=== PATIENT | female | born 1955 | race Caucasian/White ===

== ENCOUNTER 2016-09-06 15:06 | Inpatient (IN) | payer MEDICAID ==
[~2016-09-06] VITALS: Ht 119.4 cm; Wt 52.2 kg
[2016-09-06 15:06] VITALS: BP 106/45; PULSE 70; RESP 16; TEMP 98.8; O2SAT 99
[2016-09-06 15:51] LABS: BASOPHILS # (AUTO) 0.1 K/uL (0.0-0.2); BASOPHILS % (AUTO) 0.4 % (0.0-2.0); EOSINOPHILS # (AUTO) 0.5 K/uL (0.0-0.4); HEMATOCRIT 28.9 % (36-48); HEMOGLOBIN 9.6 g/dL (12.0-16.0); LYMPHOCYTES # (AUTO) 1.8 K/uL (1.0-5.5); LYMPHOCYTES % (AUTO) 11.8 % (20.5-51.5); MEAN CORPUSCULAR HEMOGLOBIN 27 pg (27-31); MEAN CORPUSCULAR HGB CONC 33 % (32-36); MEAN CORPUSCULAR VOLUME 80 fL (79.0-98.0); MONOCYTES # (AUTO) 0.6 K/uL (0.0-1.0); MONOCYTES % (AUTO) 4.2 % (1.7-9.3); NEUTROPHILS # (AUTO) 12.3 K/uL (1.8-7.7); NEUTROPHILS % (AUTO) 80.6 % (40.0-70.0); PLATELET COUNT (AUTO) 252 K/uL (130-430); RED CELL DISTRIBUTION WIDTH 15.1 % (9.0-15.0); WHITE BLOOD COUNT (AUTO) 15.3 K/uL (4.8-10.8)
[2016-09-06] MEDS ORDERED: ASA81 GT (16:08)
[2016-09-06] MEDS ORDERED: DOCU-144 GT (16:08)
[2016-09-06] MEDS ORDERED: METO-442 GT (16:08)
[2016-09-06] MEDS ORDERED: NOR10 GT (16:08)
[2016-09-06] MEDS ORDERED: INSU100V9 SUBCUT (16:08)
[2016-09-06] MEDS ORDERED: SIMV20TA2 GT (16:08)
[2016-09-06] MEDS ORDERED: SSREG SUBCUT (16:08)
[2016-09-06] MEDS ORDERED: HYDR-1189 GT (16:08)
[2016-09-06] MEDS ORDERED: GLIP-195 GT (16:08)
[2016-09-06] MEDS ORDERED: FER300L GT (16:08)
[2016-09-06] MEDS ORDERED: LACTIN GT (16:08)
[2016-09-06] MEDS ORDERED: CAT.1 GT (16:08)
[2016-09-06] MEDS ORDERED: MULT GT (16:08)
[2016-09-06] MEDS ORDERED: ASCO500T20 GT (16:08)
[2016-09-06 16:10] LABS: INR 0.9 (0.8-1.2); PROTHROMBIN TIME 9.9 SECS (9.5-12.5)
[2016-09-06 16:32] LABS: CALCIUM 9.2 mg/dL (8.4-11.0); CREATININE 1.67 mg/dL (0.55-1.30); POTASSIUM 3.7 mmol/L (3.5-5.1)
[2016-09-06 16:44] LABS: ALBUMIN 2.7 g/dL (3.4-4.8); TOTAL BILIRUBIN 0.3 mg/dL (0.0-1.0); TOTAL PROTEIN, SERUM 8.6 g/dL (6.4-8.3)
[2016-09-06] MEDS ORDERED: NACL 0.9% 1,000 ML IV ONE (17:37)
[2016-09-06] MEDS ORDERED: INSULIN REGULAR, HUMAN 100 UNITS/ML, 10 ML VIAL (novoLIN R) SUBCUT PRN (18:15)
[2016-09-06] MEDS ORDERED: MORPHINE 2 MG/ML INJ. SYRINGE IVP PRN (19:00)
[2016-09-06] MEDS ORDERED: MAGNESIUM SULFATE 50 ML IV PRN (19:00)
[2016-09-06] MEDS ORDERED: POTASSIUM CHLORIDE 10 MEQ TAB.PRT.SR PO PRN (19:00)
[2016-09-06] MEDS ORDERED: DOCUSATE SODIUM 100 MG CAPSULE PO PRN (19:00)
[2016-09-06] MEDS ORDERED: ZOLPIDEM TARTRATE 5 MG TABLET PO PRN (19:00)
[2016-09-06] MEDS ORDERED: LORazepam 2 MG/ML VIAL IVP PRN (19:00)
[2016-09-06] MEDS ORDERED: DEXTROSE 50% JECT 50 ML DISP.SYRIN IVP PRN (19:00)
[2016-09-06] MEDS ORDERED: ZOLPIDEM TARTRATE 5 MG TABLET GT PRN (19:51)
[2016-09-06 20:00] VITALS: BP 146/62; PULSE 75; RESP 18; TEMP 97.7; O2SAT 96
[2016-09-06] MEDS ORDERED: ACETAMINOPHEN 650 MG/20.3 ML UDC PO PRN (20:00)
[2016-09-06] MEDS: SIMVASTATIN 20 MG TABLET GT SCH (21:36)
[2016-09-06] MEDS: FERROUS SULFATE 300 MG/5 ML UDC GT SCH (21:36)
[2016-09-06] MEDS: METOPROLOL TARTRATE 50 MG TABLET GT SCH (21:37)
[2016-09-06] MEDS: NACL 0.9% 1,000 ML IV SCH (21:37)
[2016-09-06] MEDS: HEPARIN SODIUM,PORCINE 5000 UNITS/ML VIAL SUBCUT SCH (21:40)
[2016-09-06 23:11] LABS: BILIRUBIN,URINE NEGATIVE (NEGATIVE); BLOOD, URINE 2+ (NEGATIVE); CLARITY/URINE SL HAZY (CLEAR); COLOR,URINE YELLOW (YELLOW); GLUCOSE,URINE NEGATIVE (NEGATIVE); KETONES,URINE NEGATIVE (NEGATIVE); LEUKOCYTE ESTERASE ,URINE 1+ (NEGATIVE); NITRITE, URINE NEGATIVE (NEGATIVE); PH,URINE 8.5 (5.0-8.0); PROTEIN URINE 2+ (NEGATIVE); UROBILINOGEN,URINE 0.2 (0.2-1.0)
[2016-09-06 23:24] LABS: BACTERIA,URINE FEW /HPF (None Seen); RBC,URINE 20-50 /HPF (0-3)
[2016-09-06 23:25] LABS: MUCUS,URINE None Seen /LPF (None Seen)
[2016-09-07 00:30] VITALS: BP 138/68; PULSE 61; RESP 17; TEMP 97.9; O2SAT 97
[2016-09-07 04:43] VITALS: BP 143/66; PULSE 67; RESP 18; TEMP 98.6; O2SAT 98
[2016-09-07] MEDS: ONDANSETRON HCL 4 MG/2 ML VIAL IVP PRN ×2 (05:13→21:51)
[2016-09-07] MEDS: INSULIN ASPART 100 UNITS/ML, 10 ML VIAL (NovoLOG) SUBCUT PRN ×4 (05:49→21:57)
[2016-09-07 06:39] LABS: BASOPHILS # (AUTO) 0.1 K/uL (0.0-0.2); BASOPHILS % (AUTO) 0.4 % (0.0-2.0); EOSINOPHILS # (AUTO) 0.4 K/uL (0.0-0.4); EOSINOPHILS % (AUTO) 3.3 % (0.0-4.0); HEMATOCRIT 25.8 % (36-48); HEMOGLOBIN 8.6 g/dL (12.0-16.0); LYMPHOCYTES # (AUTO) 1.4 K/uL (1.0-5.5); LYMPHOCYTES % (AUTO) 10.4 % (20.5-51.5); MEAN CORPUSCULAR HEMOGLOBIN 27 pg (27-31); MEAN CORPUSCULAR HGB CONC 33 % (32-36); MEAN CORPUSCULAR VOLUME 81 fL (79.0-98.0); MONOCYTES # (AUTO) 0.5 K/uL (0.0-1.0); MONOCYTES % (AUTO) 3.9 % (1.7-9.3); NEUTROPHILS # (AUTO) 11.2 K/uL (1.8-7.7); PLATELET COUNT (AUTO) 247 K/uL (130-430); RED BLOOD CELL COUNT(AUTO) 3.19 MIL/uL (4.2-6.2); RED CELL DISTRIBUTION WIDTH 15.2 % (9.0-15.0); WHITE BLOOD COUNT (AUTO) 13.6 K/uL (4.8-10.8)
[2016-09-07 07:01] LABS: CALCIUM 8.6 mg/dL (8.4-11.0); CREATININE 1.48 mg/dL (0.55-1.30); POTASSIUM 3.6 mmol/L (3.5-5.1)
[2016-09-07] MEDS: NACL 0.9% 1,000 ML IV SCH ×2 (08:15→17:36)
[2016-09-07 08:59] VITALS: BP 138/52; PULSE 71; RESP 19; TEMP 98.9; O2SAT 92
[2016-09-07] MEDS: cloNIDine HCL 0.1 MG TABLET GT SCH (09:00)
[2016-09-07] MEDS: FERROUS SULFATE 300 MG/5 ML UDC GT SCH ×2 (09:58→21:54)
[2016-09-07] MEDS: amLODIPine BESYLATE 10 MG TABLET GT SCH (09:59)
[2016-09-07] MEDS: ASPIRIN 81 MG TAB.CHEW GT SCH (09:59)
[2016-09-07] MEDS: METOPROLOL TARTRATE 50 MG TABLET GT SCH ×2 (09:59→21:00)
[2016-09-07] MEDS: HEPARIN SODIUM,PORCINE 5000 UNITS/ML VIAL SUBCUT SCH ×2 (10:00→21:55)
[2016-09-07 12:00] VITALS: BP 113/47; PULSE 62; RESP 18; TEMP 99.6; O2SAT 92
[2016-09-07 16:00] VITALS: BP 135/63; PULSE 55; RESP 18; TEMP 99.8; O2SAT 95
[2016-09-07 19:40] VITALS: BP 112/51; PULSE 83; RESP 18; TEMP 98; O2SAT 96
[2016-09-07] MEDS: SIMVASTATIN 20 MG TABLET GT SCH (21:54)
[2016-09-07] MEDS ORDERED: METOCLOPRAMIDE HCL 10 MG/2 ML VIAL IVP ONE (23:15)
[2016-09-07] MEDS ORDERED: D5NS 500 ML IV ONE (23:15)
[2016-09-07] MEDS ORDERED: D5NS 1,000 ML IV SCH (23:15)
[2016-09-08] VITALS (8 sets, daily range): BP systolic 106–130; BP diastolic 50–64; PULSE 73–83; RESP 16–20; TEMP 97.9–99.9; O2SAT 94–98; Ht 119.4 cm; Wt 52.2 kg
[2016-09-08 06:22] LABS: BASOPHILS # (AUTO) 0.1 K/uL (0.0-0.2); BASOPHILS % (AUTO) 0.3 % (0.0-2.0); EOSINOPHILS # (AUTO) 0.1 K/uL (0.0-0.4); EOSINOPHILS % (AUTO) 0.7 % (0.0-4.0); HEMATOCRIT 28.7 % (36-48); HEMOGLOBIN 9.2 g/dL (12.0-16.0); LYMPHOCYTES # (AUTO) 1.7 K/uL (1.0-5.5); MEAN CORPUSCULAR HEMOGLOBIN 26 pg (27-31); MEAN CORPUSCULAR HGB CONC 32 % (32-36); MEAN CORPUSCULAR VOLUME 82 fL (79.0-98.0); MONOCYTES # (AUTO) 0.6 K/uL (0.0-1.0); MONOCYTES % (AUTO) 2.8 % (1.7-9.3); NEUTROPHILS # (AUTO) 18.3 K/uL (1.8-7.7); NEUTROPHILS % (AUTO) 88.2 % (40.0-70.0); PLATELET COUNT (AUTO) 247 K/uL (130-430); RED BLOOD CELL COUNT(AUTO) 3.49 MIL/uL (4.2-6.2); RED CELL DISTRIBUTION WIDTH 15.4 % (9.0-15.0); WHITE BLOOD COUNT (AUTO) 20.8 K/uL (4.8-10.8)
[2016-09-08] MEDS: INSULIN ASPART 100 UNITS/ML, 10 ML VIAL (NovoLOG) SUBCUT PRN ×4 (06:34→22:30)
[2016-09-08] MEDS: METOCLOPRAMIDE HCL 10 MG/2 ML VIAL IVP SCH ×3 (06:42→22:10)
[2016-09-08 06:55] LABS: CALCIUM 8.4 mg/dL (8.4-11.0); CREATININE 1.72 mg/dL (0.55-1.30); POTASSIUM 3.9 mmol/L (3.5-5.1)
[2016-09-08] MEDS ORDERED: D5W 1,000 ML IV SCH (07:49)
[2016-09-08] MEDS ORDERED: cefTRIAXone 1 GM IVPB PREMIX 50 ML IV SCH (09:00)
[2016-09-08] MEDS: amLODIPine BESYLATE 10 MG TABLET GT SCH (10:03)
[2016-09-08] MEDS: ASPIRIN 81 MG TAB.CHEW GT SCH (10:03)
[2016-09-08] MEDS: FERROUS SULFATE 300 MG/5 ML UDC GT SCH ×2 (10:03→22:06)
[2016-09-08] MEDS: METOPROLOL TARTRATE 50 MG TABLET GT SCH ×2 (10:04→21:00)
[2016-09-08] MEDS: cloNIDine HCL 0.1 MG TABLET GT SCH (10:04)
[2016-09-08] MEDS: HEPARIN SODIUM,PORCINE 5000 UNITS/ML VIAL SUBCUT SCH ×2 (10:06→22:09)
[2016-09-08] MEDS: ACETAMINOPHEN 650 MG/20.3 ML UDC GT PRN ×2 (11:47→18:15)
[2016-09-08] MEDS: VANCOMYCIN HCL 500 MG in NS 100 ML IV SCH (11:48)
[2016-09-08] MEDS ORDERED: BALSAM PERU/CASTOR OIL 60 GM OINT...G. TP ONE (20:15)
[2016-09-08] MEDS: SIMVASTATIN 20 MG TABLET GT SCH (22:07)
[2016-09-09 00:15] VITALS: BP 127/62; PULSE 67; RESP 17; TEMP 98.7; O2SAT 98
[2016-09-09 04:16] VITALS: BP 128/60; PULSE 70; RESP 16; TEMP 99; O2SAT 100
[2016-09-09] MEDS: METOCLOPRAMIDE HCL 10 MG/2 ML VIAL IVP SCH ×3 (06:04→22:56)
[2016-09-09] MEDS: INSULIN ASPART 100 UNITS/ML, 10 ML VIAL (NovoLOG) SUBCUT PRN ×5 (06:06→22:49)
[2016-09-09 07:10] LABS: BASOPHILS # (AUTO) 0.1 K/uL (0.0-0.2); BASOPHILS % (AUTO) 0.4 % (0.0-2.0); EOSINOPHILS # (AUTO) 0.1 K/uL (0.0-0.4); EOSINOPHILS % (AUTO) 0.4 % (0.0-4.0); HEMATOCRIT 28.2 % (36-48); HEMOGLOBIN 9.1 g/dL (12.0-16.0); LYMPHOCYTES # (AUTO) 1.6 K/uL (1.0-5.5); LYMPHOCYTES % (AUTO) 9.2 % (20.5-51.5); MEAN CORPUSCULAR HEMOGLOBIN 27 pg (27-31); MEAN CORPUSCULAR HGB CONC 32 % (32-36); MEAN CORPUSCULAR VOLUME 84 fL (79.0-98.0); MONOCYTES # (AUTO) 0.7 K/uL (0.0-1.0); MONOCYTES % (AUTO) 4.2 % (1.7-9.3); NEUTROPHILS # (AUTO) 14.9 K/uL (1.8-7.7); PLATELET COUNT (AUTO) 231 K/uL (130-430); RED BLOOD CELL COUNT(AUTO) 3.36 MIL/uL (4.2-6.2); RED CELL DISTRIBUTION WIDTH 15.6 % (9.0-15.0); WHITE BLOOD COUNT (AUTO) 17.4 K/uL (4.8-10.8)
[2016-09-09 07:18] LABS: CALCIUM 8.3 mg/dL (8.4-11.0); CREATININE 1.86 mg/dL (0.55-1.30); PHOSPHORUS 2.1 mg/dL (2.7-4.5); POTASSIUM 4.1 mmol/L (3.5-5.1); TOTAL BILIRUBIN 0.2 mg/dL (0.0-1.0); TOTAL PROTEIN, SERUM 7.5 g/dL (6.4-8.3)
[2016-09-09] MEDS ORDERED: NA PHOS 15 MM in NS 250 ML IV ONE (08:00)
[2016-09-09] MEDS: BALSAM PERU/CASTOR OIL 60 GM OINT...G. TP SCH (09:00)
[2016-09-09] MEDS ORDERED: LEVOFLOXACIN 250 MG/D5W 50 ML IV SCH (09:00)
[2016-09-09] MEDS: ASPIRIN 81 MG TAB.CHEW GT SCH (09:09)
[2016-09-09] MEDS: FERROUS SULFATE 300 MG/5 ML UDC GT SCH ×2 (09:09→22:52)
[2016-09-09] MEDS: cloNIDine HCL 0.1 MG TABLET GT SCH (09:11)
[2016-09-09] MEDS: amLODIPine BESYLATE 10 MG TABLET GT SCH (09:13)
[2016-09-09] MEDS: METOPROLOL TARTRATE 50 MG TABLET GT SCH ×2 (09:13→22:55)
[2016-09-09] MEDS: HEPARIN SODIUM,PORCINE 5000 UNITS/ML VIAL SUBCUT SCH ×2 (09:18→22:59)
[2016-09-09] MEDS: 0.45% NACL 1,000 ML IV SCH ×3 (09:21→23:21)
[2016-09-09] MEDS ORDERED: BISACODYL 10 MG/SUPPOSITORY RC ONE (09:45)
[2016-09-09] MEDS ORDERED: POLYETHYLENE GLYCOL 3350, 17 GM/ POWD.PACK GT ONE (10:00)
[2016-09-09] MEDS: VANCOMYCIN HCL 500 MG in NS 100 ML IV SCH (11:47)
[2016-09-09 11:51] LABS: NEUTROPHILS % (AUTO) 85.8 % (40.0-70.0)
[2016-09-09] MEDS ORDERED: LACTOBACILLUS RHAMNOSUS GG 1 CAP CAPSULE PO ONE (12:15)
[2016-09-09 12:42] VITALS: BP 98/60; PULSE 73; RESP 18; TEMP 99.8; O2SAT 98
[2016-09-09] MEDS: PIPERACILLIN/TAZO 3.375/DEX-IS 50 ML IV SCH ×3 (13:38→23:21)
[2016-09-09] MEDS: ACETAMINOPHEN 650 MG/20.3 ML UDC GT PRN ×2 (13:39→23:22)
[2016-09-09 18:09] VITALS: BP 95/45; PULSE 69; RESP 18; TEMP 100; O2SAT 93
[2016-09-09] MEDS: LACTOBACILLUS RHAMNOSUS GG 1 CAP CAPSULE PO SCH (22:52)
[2016-09-09] MEDS: SIMVASTATIN 20 MG TABLET GT SCH (22:53)
[2016-09-10 01:14] VITALS: BP 109/57; PULSE 83; RESP 20; TEMP 100.2; O2SAT 91
[2016-09-10 04:08] VITALS: BP 119/82; PULSE 70; RESP 18; TEMP 100.4; TEMP 98.6; O2SAT 99
[2016-09-10] MEDS: PIPERACILLIN/TAZO 3.375/DEX-IS 50 ML IV SCH ×4 (05:56→23:37)
[2016-09-10] MEDS: ACETAMINOPHEN 650 MG/20.3 ML UDC GT PRN ×3 (05:57→20:29)
[2016-09-10] MEDS: METOCLOPRAMIDE HCL 10 MG/2 ML VIAL IVP SCH ×3 (05:57→23:37)
[2016-09-10] MEDS: INSULIN ASPART 100 UNITS/ML, 10 ML VIAL (NovoLOG) SUBCUT PRN ×4 (06:11→20:39)
[2016-09-10 06:47] LABS: HEMATOCRIT 27.9 % (36-48); HEMOGLOBIN 8.9 g/dL (12.0-16.0); MEAN CORPUSCULAR HEMOGLOBIN 27 pg (27-31); MEAN CORPUSCULAR HGB CONC 32 % (32-36); MEAN CORPUSCULAR VOLUME 83 fL (79.0-98.0); PLATELET COUNT (AUTO) 210 K/uL (130-430); RED BLOOD CELL COUNT(AUTO) 3.35 MIL/uL (4.2-6.2); RED CELL DISTRIBUTION WIDTH 16.1 % (9.0-15.0); WHITE BLOOD COUNT (AUTO) 21.1 K/uL (4.8-10.8)
[2016-09-10 07:16] LABS: ALBUMIN 1.7 g/dL (3.4-4.8); CALCIUM 7.8 mg/dL (8.4-11.0); CREATININE 1.99 mg/dL (0.55-1.30); POTASSIUM 3.7 mmol/L (3.5-5.1); TOTAL BILIRUBIN 0.2 mg/dL (0.0-1.0); TOTAL PROTEIN, SERUM 6.6 g/dL (6.4-8.3)
[2016-09-10 08:18] LABS: BAND % (MANUAL) 4 % (0-6); BASOPHILS % (MANUAL) 0 % (0-2); EOSINOPHILS % (MANUAL) 0 % (0-7); LYMPHOCYTES % (MANUAL) 11 % (20-46); MONOCYTES % (MANUAL) 3 % (0-11)
[2016-09-10] MEDS: FERROUS SULFATE 300 MG/5 ML UDC GT SCH ×2 (08:29→20:28)
[2016-09-10] MEDS: LACTOBACILLUS RHAMNOSUS GG 1 CAP CAPSULE PO SCH ×2 (08:29→20:29)
[2016-09-10] MEDS: ASPIRIN 81 MG TAB.CHEW GT SCH (08:30)
[2016-09-10] MEDS: POLYETHYLENE GLYCOL 3350, 17 GM/ POWD.PACK GT SCH (08:31)
[2016-09-10] MEDS: HEPARIN SODIUM,PORCINE 5000 UNITS/ML VIAL SUBCUT SCH ×2 (08:39→20:32)
[2016-09-10] MEDS: amLODIPine BESYLATE 10 MG TABLET GT SCH (09:00)
[2016-09-10] MEDS: cloNIDine HCL 0.1 MG TABLET GT SCH (09:00)
[2016-09-10] MEDS: METOPROLOL TARTRATE 50 MG TABLET GT SCH ×2 (09:00→20:29)
[2016-09-10] MEDS ORDERED: NA PHOS,M-B/NA PHOS,DI-BA 118 ML (FLEET ENEMA) RC ONE (10:00)
[2016-09-10 11:52] VITALS: BP 123/60; PULSE 74; RESP 18; TEMP 101.4; O2SAT 96
[2016-09-10] MEDS: VANCOMYCIN HCL 500 MG in NS 100 ML IV SCH (12:17)
[2016-09-10] MEDS: BALSAM PERU/CASTOR OIL 60 GM OINT...G. TP SCH (16:27)
[2016-09-10 16:38] VITALS: BP 124/55; PULSE 74; RESP 16; TEMP 100.3; O2SAT 94
[2016-09-10] MEDS ORDERED: *CUBICIN 6 MG/KG Q48H/PHARMACY XX PRN (18:15)
[2016-09-10 20:00] VITALS: BP 134/60; PULSE 76; RESP 19; TEMP 101.1; O2SAT 99
[2016-09-10] MEDS: DAPTOmycin 300 MG in NS 50 ML IV SCH (20:28)
[2016-09-10] MEDS: SIMVASTATIN 20 MG TABLET GT SCH (20:29)
[2016-09-11 01:28] VITALS: BP 118/53; PULSE 61; RESP 19; TEMP 100.1; O2SAT 99
[2016-09-11 04:02] VITALS: BP 125/55; PULSE 67; RESP 20; TEMP 100.8; O2SAT 96
[2016-09-11] MEDS: ACETAMINOPHEN 650 MG/20.3 ML UDC GT PRN ×3 (04:10→17:31)
[2016-09-11] MEDS: PIPERACILLIN/TAZO 3.375/DEX-IS 50 ML IV SCH ×4 (06:15→23:22)
[2016-09-11] MEDS: METOCLOPRAMIDE HCL 10 MG/2 ML VIAL IVP SCH ×3 (06:16→21:59)
[2016-09-11] MEDS: INSULIN ASPART 100 UNITS/ML, 10 ML VIAL (NovoLOG) SUBCUT PRN ×4 (06:55→22:07)
[2016-09-11 07:14] LABS: BASOPHILS # (AUTO) 0.2 K/uL (0.0-0.2); BASOPHILS % (AUTO) 0.8 % (0.0-2.0); EOSINOPHILS # (AUTO) 0.1 K/uL (0.0-0.4); EOSINOPHILS % (AUTO) 0.6 % (0.0-4.0); HEMATOCRIT 24.4 % (36-48); HEMOGLOBIN 7.8 g/dL (12.0-16.0); LYMPHOCYTES # (AUTO) 1.7 K/uL (1.0-5.5); LYMPHOCYTES % (AUTO) 8.7 % (20.5-51.5); MEAN CORPUSCULAR HEMOGLOBIN 26 pg (27-31); MEAN CORPUSCULAR HGB CONC 32 % (32-36); MEAN CORPUSCULAR VOLUME 83 fL (79.0-98.0); MONOCYTES # (AUTO) 0.7 K/uL (0.0-1.0); MONOCYTES % (AUTO) 3.6 % (1.7-9.3); NEUTROPHILS # (AUTO) 17.2 K/uL (1.8-7.7); PLATELET COUNT (AUTO) 190 K/uL (130-430); RED BLOOD CELL COUNT(AUTO) 2.94 MIL/uL (4.2-6.2); RED CELL DISTRIBUTION WIDTH 15.6 % (9.0-15.0); WHITE BLOOD COUNT (AUTO) 19.9 K/uL (4.8-10.8)
[2016-09-11 07:37] LABS: CALCIUM 7.6 mg/dL (8.4-11.0); CREATININE 1.8 mg/dL (0.55-1.30); POTASSIUM 3.2 mmol/L (3.5-5.1)
[2016-09-11 07:38] LABS: PHOSPHORUS 3.5 mg/dL (2.7-4.5)
[2016-09-11 08:00] VITALS: BP 130/75; PULSE 76; RESP 18; TEMP 100; O2SAT 94
[2016-09-11 08:20] LABS: NEUTROPHILS % (AUTO) 86.3 % (40.0-70.0)
[2016-09-11] MEDS ORDERED: POTASSIUM CHLORIDE 20 MEQ TAB.PRT.SR GT ONE (08:30)
[2016-09-11] MEDS ORDERED: POTASSIUM CHLORIDE 40 MEQ in NS 250 ML IV ONE (08:30)
[2016-09-11] MEDS: FERROUS SULFATE 300 MG/5 ML UDC GT SCH ×2 (11:17→21:58)
[2016-09-11] MEDS: ASPIRIN 81 MG TAB.CHEW GT SCH (11:19)
[2016-09-11] MEDS: POTASSIUM CHLORIDE 10 MEQ TAB.PRT.SR GT PRN (11:19)
[2016-09-11] MEDS: LACTOBACILLUS RHAMNOSUS GG 1 CAP CAPSULE PO SCH ×2 (11:19→21:58)
[2016-09-11] MEDS: amLODIPine BESYLATE 10 MG TABLET GT SCH (11:19)
[2016-09-11] MEDS: cloNIDine HCL 0.1 MG TABLET GT SCH (11:20)
[2016-09-11] MEDS: METOPROLOL TARTRATE 50 MG TABLET GT SCH ×2 (11:20→21:59)
[2016-09-11] MEDS: POLYETHYLENE GLYCOL 3350, 17 GM/ POWD.PACK GT SCH (11:21)
[2016-09-11] MEDS: BALSAM PERU/CASTOR OIL 60 GM OINT...G. TP SCH (11:22)
[2016-09-11] MEDS: HEPARIN SODIUM,PORCINE 5000 UNITS/ML VIAL SUBCUT SCH ×2 (11:25→22:00)
[2016-09-11 12:00] VITALS: BP 129/52; PULSE 76; RESP 21; TEMP 100.4; O2SAT 94
[2016-09-11] MEDS ORDERED: POTASSIUM CHLORIDE 10 MEQ TAB.PRT.SR GT ONE (15:00)
[2016-09-11 16:45] VITALS: BP 113/85; PULSE 70; RESP 16; TEMP 100.1; O2SAT 98
[2016-09-11] MEDS: 0.45% NACL 1,000 ML IV SCH (17:31)
[2016-09-11 19:30] VITALS: BP 126/62; PULSE 69; RESP 18; TEMP 99.6; O2SAT 98
[2016-09-11] MEDS: SIMVASTATIN 20 MG TABLET GT SCH (21:58)
[2016-09-12 00:19] VITALS: BP 122/58; PULSE 72; RESP 17; TEMP 99.8; O2SAT 96
[2016-09-12] MEDS: ACETAMINOPHEN 650 MG/20.3 ML UDC GT PRN ×3 (03:58→21:18)
[2016-09-12 04:38] VITALS: BP 124/64; PULSE 74; RESP 18; TEMP 100; O2SAT 98
[2016-09-12] MEDS: PIPERACILLIN/TAZO 3.375/DEX-IS 50 ML IV SCH ×4 (06:32→17:52)
[2016-09-12] MEDS: METOCLOPRAMIDE HCL 10 MG/2 ML VIAL IVP SCH ×2 (06:32→16:48)
[2016-09-12] MEDS: INSULIN ASPART 100 UNITS/ML, 10 ML VIAL (NovoLOG) SUBCUT PRN ×2 (06:40→12:28)
[2016-09-12 07:33] LABS: BASOPHILS % (AUTO) 0.2 % (0.0-2.0); EOSINOPHILS # (AUTO) 0.2 K/uL (0.0-0.4); EOSINOPHILS % (AUTO) 1.3 % (0.0-4.0); HEMATOCRIT 22.9 % (36-48); HEMOGLOBIN 7.4 g/dL (12.0-16.0); LYMPHOCYTES # (AUTO) 1.6 K/uL (1.0-5.5); LYMPHOCYTES % (AUTO) 10.3 % (20.5-51.5); MEAN CORPUSCULAR HEMOGLOBIN 27 pg (27-31); MEAN CORPUSCULAR HGB CONC 32 % (32-36); MEAN CORPUSCULAR VOLUME 82 fL (79.0-98.0); MONOCYTES # (AUTO) 0.5 K/uL (0.0-1.0); MONOCYTES % (AUTO) 3.4 % (1.7-9.3); NEUTROPHILS # (AUTO) 12.9 K/uL (1.8-7.7); NEUTROPHILS % (AUTO) 84.8 % (40.0-70.0); PLATELET COUNT (AUTO) 170 K/uL (130-430); RED BLOOD CELL COUNT(AUTO) 2.79 MIL/uL (4.2-6.2); RED CELL DISTRIBUTION WIDTH 15.6 % (9.0-15.0); WHITE BLOOD COUNT (AUTO) 15.2 K/uL (4.8-10.8)
[2016-09-12 07:45] LABS: CALCIUM 7.9 mg/dL (8.4-11.0); CREATININE 1.71 mg/dL (0.55-1.30); POTASSIUM 3.7 mmol/L (3.5-5.1)
[2016-09-12 08:00] VITALS: BP 114/57; PULSE 67; RESP 18; TEMP 98.7; O2SAT 98
[2016-09-12] MEDS: cloNIDine HCL 0.1 MG TABLET GT SCH (10:24)
[2016-09-12] MEDS: ASPIRIN 81 MG TAB.CHEW GT SCH (10:24)
[2016-09-12] MEDS: FERROUS SULFATE 300 MG/5 ML UDC GT SCH ×2 (10:24→21:18)
[2016-09-12] MEDS: amLODIPine BESYLATE 10 MG TABLET GT SCH (10:25)
[2016-09-12] MEDS: LACTOBACILLUS RHAMNOSUS GG 1 CAP CAPSULE PO SCH ×2 (10:25→21:18)
[2016-09-12] MEDS: HEPARIN SODIUM,PORCINE 5000 UNITS/ML VIAL SUBCUT SCH ×2 (10:26→21:18)
[2016-09-12] MEDS: BALSAM PERU/CASTOR OIL 60 GM OINT...G. TP SCH (10:27)
[2016-09-12] MEDS: POLYETHYLENE GLYCOL 3350, 17 GM/ POWD.PACK GT SCH (10:32)
[2016-09-12] MEDS: METOPROLOL TARTRATE 50 MG TABLET GT SCH ×2 (10:33→21:20)
[2016-09-12 12:36] VITALS: BP 120/57; PULSE 68; RESP 16; TEMP 99.6; O2SAT 98
[2016-09-12 16:23] VITALS: BP 102/46; PULSE 59; RESP 18; TEMP 98; O2SAT 98
[2016-09-12] MEDS: 0.45% NACL 1,000 ML IV SCH (16:48)
[2016-09-12 19:35] VITALS: BP 100/48; PULSE 62; RESP 18; TEMP 99.7; O2SAT 100
[2016-09-12] MEDS: SIMVASTATIN 20 MG TABLET GT SCH (21:18)
[2016-09-13] VITALS (10 sets, daily range): BP systolic 101–132; BP diastolic 42–76; PULSE 56–65; RESP 16–21; TEMP 96.6–99.5; O2SAT 93–100
[2016-09-13] MEDS: PIPERACILLIN/TAZO 3.375/DEX-IS 50 ML IV SCH ×5 (00:57→22:57)
[2016-09-13] MEDS: METOCLOPRAMIDE HCL 10 MG/2 ML VIAL IVP SCH ×4 (00:58→22:57)
[2016-09-13] MEDS: DAPTOmycin 300 MG in NS 50 ML IV SCH (00:58)
[2016-09-13 07:22] LABS: BASOPHILS % (AUTO) 0.2 % (0.0-2.0); EOSINOPHILS # (AUTO) 0.4 K/uL (0.0-0.4); EOSINOPHILS % (AUTO) 2.1 % (0.0-4.0); HEMATOCRIT 26.7 % (36-48); HEMOGLOBIN 8.8 g/dL (12.0-16.0); LYMPHOCYTES # (AUTO) 1.6 K/uL (1.0-5.5); LYMPHOCYTES % (AUTO) 9.5 % (20.5-51.5); MEAN CORPUSCULAR HEMOGLOBIN 28 pg (27-31); MEAN CORPUSCULAR HGB CONC 33 % (32-36); MEAN CORPUSCULAR VOLUME 84 fL (79.0-98.0); MONOCYTES # (AUTO) 0.6 K/uL (0.0-1.0); MONOCYTES % (AUTO) 3.7 % (1.7-9.3); NEUTROPHILS # (AUTO) 14.1 K/uL (1.8-7.7); NEUTROPHILS % (AUTO) 84.5 % (40.0-70.0); RED BLOOD CELL COUNT(AUTO) 3.19 MIL/uL (4.2-6.2); RED CELL DISTRIBUTION WIDTH 15.3 % (9.0-15.0); WHITE BLOOD COUNT (AUTO) 16.7 K/uL (4.8-10.8)
[2016-09-13 07:45] LABS: CALCIUM 8.2 mg/dL (8.4-11.0); CREATININE 1.51 mg/dL (0.55-1.30); POTASSIUM 3.3 mmol/L (3.5-5.1)
[2016-09-13 08:47] LABS: PLATELET COUNT (AUTO) 177 K/uL (130-430)
[2016-09-13] MEDS: amLODIPine BESYLATE 10 MG TABLET GT SCH (10:57)
[2016-09-13] MEDS: cloNIDine HCL 0.1 MG TABLET GT SCH (10:57)
[2016-09-13] MEDS: LACTOBACILLUS RHAMNOSUS GG 1 CAP CAPSULE PO SCH ×2 (10:57→21:36)
[2016-09-13] MEDS: FERROUS SULFATE 300 MG/5 ML UDC GT SCH ×2 (10:58→21:37)
[2016-09-13] MEDS: ASPIRIN 81 MG TAB.CHEW GT SCH (10:58)
[2016-09-13] MEDS: METOPROLOL TARTRATE 50 MG TABLET GT SCH ×2 (10:58→21:37)
[2016-09-13] MEDS: POLYETHYLENE GLYCOL 3350, 17 GM/ POWD.PACK GT SCH (10:58)
[2016-09-13] MEDS: HEPARIN SODIUM,PORCINE 5000 UNITS/ML VIAL SUBCUT SCH ×2 (11:00→21:38)
[2016-09-13] MEDS: 0.45% NACL 1,000 ML IV SCH (11:02)
[2016-09-13] MEDS: BALSAM PERU/CASTOR OIL 60 GM OINT...G. TP SCH (11:04)
[2016-09-13] MEDS ORDERED: D5W 500 ML IV ONE (11:30)
[2016-09-13] MEDS ORDERED: MIDAZOLAM HCL 5 MG/5 ML VIAL ONE (14:00)
[2016-09-13] MEDS ORDERED: NS IRRIG SOLN 1000 ML IR ONE (14:00)
[2016-09-13] MEDS ORDERED: LR 1,000 ML IV.SOLN IV ONE (14:00)
[2016-09-13] MEDS: EPOETIN ALFA 4,000 UNITS/ML VIAL SUBCUT SCH (17:34)
[2016-09-13] MEDS ORDERED: ONDANSETRON HCL 4 MG/2 ML VIAL IVP PRN (19:45)
[2016-09-13] MEDS ORDERED: LR 1,000 ML IV SCH (19:45)
[2016-09-13] MEDS ORDERED: MEPERIDINE HCL/PF 50 MG/ML AMP IVP PRN ×2 (19:45)
[2016-09-13] MEDS: SIMVASTATIN 20 MG TABLET GT SCH (21:36)
[2016-09-13] MEDS: POTASSIUM CHLORIDE 10 MEQ TAB.PRT.SR GT PRN (21:40)
[2016-09-14 01:12] VITALS: BP 105/56; PULSE 52; RESP 18; TEMP 97.6; O2SAT 100
[2016-09-14 04:07] VITALS: BP 107/55; PULSE 56; RESP 19; TEMP 97.6; O2SAT 100
[2016-09-14] MEDS: PIPERACILLIN/TAZO 3.375/DEX-IS 50 ML IV SCH ×2 (05:16→12:02)
[2016-09-14] MEDS: METOCLOPRAMIDE HCL 10 MG/2 ML VIAL IVP SCH ×3 (05:16→21:25)
[2016-09-14] MEDS: INSULIN ASPART 100 UNITS/ML, 10 ML VIAL (NovoLOG) SUBCUT PRN ×4 (06:02→21:28)
[2016-09-14 06:30] LABS: CALCIUM 7.8 mg/dL (8.4-11.0); CREATININE 1.31 mg/dL (0.55-1.30); POTASSIUM 3.2 mmol/L (3.5-5.1)
[2016-09-14 06:35] LABS: BASOPHILS # (AUTO) 0.1 K/uL (0.0-0.2); BASOPHILS % (AUTO) 0.4 % (0.0-2.0); EOSINOPHILS # (AUTO) 0.5 K/uL (0.0-0.4); EOSINOPHILS % (AUTO) 3.4 % (0.0-4.0); HEMOGLOBIN 8.6 g/dL (12.0-16.0); LYMPHOCYTES # (AUTO) 1.5 K/uL (1.0-5.5); LYMPHOCYTES % (AUTO) 10.6 % (20.5-51.5); MEAN CORPUSCULAR HEMOGLOBIN 27 pg (27-31); MEAN CORPUSCULAR HGB CONC 32 % (32-36); MEAN CORPUSCULAR VOLUME 85 fL (79.0-98.0); MONOCYTES # (AUTO) 0.4 K/uL (0.0-1.0); MONOCYTES % (AUTO) 2.8 % (1.7-9.3); NEUTROPHILS # (AUTO) 11.2 K/uL (1.8-7.7); NEUTROPHILS % (AUTO) 82.8 % (40.0-70.0); PLATELET COUNT (AUTO) 168 K/uL (130-430); RED BLOOD CELL COUNT(AUTO) 3.18 MIL/uL (4.2-6.2); RED CELL DISTRIBUTION WIDTH 15.8 % (9.0-15.0); WHITE BLOOD COUNT (AUTO) 13.7 K/uL (4.8-10.8)
[2016-09-14 08:08] VITALS: BP 135/67; PULSE 64; RESP 18; TEMP 97.4; O2SAT 99
[2016-09-14] MEDS: POLYETHYLENE GLYCOL 3350, 17 GM/ POWD.PACK GT SCH (10:01)
[2016-09-14] MEDS: FERROUS SULFATE 300 MG/5 ML UDC GT SCH ×2 (10:02→21:24)
[2016-09-14] MEDS: METOPROLOL TARTRATE 50 MG TABLET GT SCH ×2 (10:02→21:25)
[2016-09-14] MEDS: LACTOBACILLUS RHAMNOSUS GG 1 CAP CAPSULE PO SCH (10:03)
[2016-09-14] MEDS: ASPIRIN 81 MG TAB.CHEW GT SCH (10:03)
[2016-09-14] MEDS: cloNIDine HCL 0.1 MG TABLET GT SCH (10:03)
[2016-09-14] MEDS: amLODIPine BESYLATE 10 MG TABLET GT SCH (10:03)
[2016-09-14] MEDS: BALSAM PERU/CASTOR OIL 60 GM OINT...G. TP SCH (10:13)
[2016-09-14 12:04] VITALS: BP 130/58; PULSE 62; RESP 17; TEMP 97.5; O2SAT 99
[2016-09-14] MEDS: POTASSIUM CHLORIDE 10 MEQ TAB.PRT.SR GT PRN (12:10)
[2016-09-14] MEDS: VANCOMYCIN HCL 750 MG in NS 250 ML IV SCH (14:51)
[2016-09-14 16:06] VITALS: BP 124/50; PULSE 52; RESP 18; TEMP 96.9; O2SAT 93
[2016-09-14] MEDS ORDERED: metroNIDAZOLE 500 MG TABLET PO ONE (17:30)
[2016-09-14] MEDS ORDERED: DIATR MEGLU/DIATRIZ SOD 30 ML SOLUTION PO ONE (17:31)
[2016-09-14] MEDS ORDERED: D5W 100 ML IV ONE (18:30)
[2016-09-14 19:30] VITALS: BP 173/58; PULSE 57; RESP 18; TEMP 99.1; O2SAT 98
[2016-09-14] MEDS: metroNIDAZOLE 500 MG TABLET GT SCH (21:24)
[2016-09-14] MEDS: SIMVASTATIN 20 MG TABLET GT SCH (21:25)
[2016-09-14] MEDS: metroNIDAZOLE 500 MG TABLET PO SCH (21:29)
[2016-09-15 00:23] VITALS: BP 127/51; PULSE 56; RESP 20; TEMP 99; O2SAT 95
[2016-09-15 04:14] VITALS: BP 130/58; PULSE 60; RESP 18; TEMP 98.6; O2SAT 97
[2016-09-15] MEDS: metroNIDAZOLE 500 MG TABLET PO SCH ×3 (06:00→22:00)
[2016-09-15] MEDS: metroNIDAZOLE 500 MG TABLET GT SCH ×3 (06:56→22:05)
[2016-09-15] MEDS: METOCLOPRAMIDE HCL 10 MG/2 ML VIAL IVP SCH ×3 (06:57→22:05)
[2016-09-15] MEDS: INSULIN ASPART 100 UNITS/ML, 10 ML VIAL (NovoLOG) SUBCUT PRN ×4 (07:16→22:18)
[2016-09-15 08:00] LABS: BASOPHILS # (AUTO) 0.1 K/uL (0.0-0.2); BASOPHILS % (AUTO) 0.5 % (0.0-2.0); EOSINOPHILS # (AUTO) 0.4 K/uL (0.0-0.4); EOSINOPHILS % (AUTO) 3.6 % (0.0-4.0); HEMATOCRIT 28.5 % (36-48); HEMOGLOBIN 9.2 g/dL (12.0-16.0); LYMPHOCYTES # (AUTO) 1.3 K/uL (1.0-5.5); LYMPHOCYTES % (AUTO) 11.2 % (20.5-51.5); MEAN CORPUSCULAR HEMOGLOBIN 27 pg (27-31); MEAN CORPUSCULAR HGB CONC 32 % (32-36); MEAN CORPUSCULAR VOLUME 84 fL (79.0-98.0); MONOCYTES # (AUTO) 0.5 K/uL (0.0-1.0); NEUTROPHILS # (AUTO) 9.3 K/uL (1.8-7.7); NEUTROPHILS % (AUTO) 80.7 % (40.0-70.0); PLATELET COUNT (AUTO) 183 K/uL (130-430); RED BLOOD CELL COUNT(AUTO) 3.39 MIL/uL (4.2-6.2); RED CELL DISTRIBUTION WIDTH 15.9 % (9.0-15.0); WHITE BLOOD COUNT (AUTO) 11.6 K/uL (4.8-10.8)
[2016-09-15 08:05] LABS: CALCIUM 7.8 mg/dL (8.4-11.0); CREATININE 1.02 mg/dL (0.55-1.30); POTASSIUM 3.3 mmol/L (3.5-5.1)
[2016-09-15 08:46] VITALS: BP 128/57; PULSE 54; RESP 18; TEMP 97.6; O2SAT 98
[2016-09-15] MEDS: amLODIPine BESYLATE 10 MG TABLET GT SCH (09:00)
[2016-09-15] MEDS: FERROUS SULFATE 300 MG/5 ML UDC GT SCH ×2 (09:00→22:05)
[2016-09-15] MEDS: cloNIDine HCL 0.1 MG TABLET GT SCH (09:00)
[2016-09-15] MEDS: METOPROLOL TARTRATE 50 MG TABLET GT SCH ×2 (09:00→22:07)
[2016-09-15] MEDS: POLYETHYLENE GLYCOL 3350, 17 GM/ POWD.PACK GT SCH (09:00)
[2016-09-15] MEDS: ASPIRIN 81 MG TAB.CHEW GT SCH (09:00)
[2016-09-15 12:32] VITALS: BP 147/56; PULSE 58; RESP 16; TEMP 97.3; O2SAT 96
[2016-09-15] MEDS: VANCOMYCIN HCL 750 MG in NS 250 ML IV SCH (13:38)
[2016-09-15] MEDS: BALSAM PERU/CASTOR OIL 60 GM OINT...G. TP SCH (13:41)
[2016-09-15 15:27] VITALS: BP 139/63; PULSE 57; RESP 16; TEMP 97.9; O2SAT 96
[2016-09-15] MEDS: EPOETIN ALFA 4,000 UNITS/ML VIAL SUBCUT SCH (17:39)
[2016-09-15] MEDS: POTASSIUM CHLORIDE 10 MEQ TAB.PRT.SR GT PRN (19:26)
[2016-09-15] MEDS: SIMVASTATIN 20 MG TABLET GT SCH (22:07)
[2016-09-15 22:35] VITALS: BP 123/56; PULSE 55; RESP 18; TEMP 98.4
[2016-09-16 00:45] VITALS: BP 142/65; PULSE 55; RESP 17; TEMP 98.4; O2SAT 98
== END 2016-09-16 00:45 | DRG 720 ==
LOC: SED 15:06 → SMU 18:06 → STU 09-11 01:01 → SMU 09-13 23:11
PROVIDERS: ADMIT General Practice; ATTEND General Practice
PROC: 30233N1 Transfusion of Nonautologous Red Blood Cells into Peripheral Vein, Percutaneous Approach (ICD-10-PCS; principal; 2016-09-12)
PROC: 0JB70ZZ Excision of Back Subcutaneous Tissue and Fascia, Open Approach (ICD-10-PCS; 2016-09-13)
DX: A41.9 Sepsis, unspecified organism (principal); N17.0 Acute kidney failure with tubular necrosis; G93.41 Metabolic encephalopathy; E87.0 Hyperosmolality and hypernatremia; L89.154 Pressure ulcer of sacral region, stage 4; A04.7 Enterocolitis due to Clostridium difficile; E87.2 Acidosis; J18.9 Pneumonia, unspecified organism; E11.22 Type 2 diabetes mellitus with diabetic chronic kidney disease; E11.69 Type 2 diabetes mellitus with other specified complication; L08.9 Local infection of the skin and subcutaneous tissue, unspecified; E44.0 Moderate protein-calorie malnutrition; E11.65 Type 2 diabetes mellitus with hyperglycemia; D63.8 Anemia in other chronic diseases classified elsewhere; E86.1 Hypovolemia; E66.9 Obesity, unspecified; E78.5 Hyperlipidemia, unspecified; I12.9 Hypertensive chronic kidney disease with stage 1 through stage 4 chronic kidney disease, or unspecified chronic kidney disease; N18.9 Chronic kidney disease, unspecified; K30 Functional dyspepsia; N39.0 Urinary tract infection, site not specified; R09.02 Hypoxemia; I69.351 Hemiplegia and hemiparesis following cerebral infarction affecting right dominant side; Z89.511 Acquired absence of right leg below knee; Z89.512 Acquired absence of left leg below knee; Z89.612 Acquired absence of left leg above knee; Z93.1 Gastrostomy status; Z68.36 Body mass index [BMI] 36.0-36.9, adult
CPT/HCPCS: 36415; 71010; 74000-TC; 80048; 80053; 81000-TC; 82272; 82962; 83605; 83690-TC; 83735-TC; 84100-TC; 84484; 85007; 85025; 85027; 85610-TC; 85730-TC; 86886; 86900; 86901; 86920; 87040-TC; 87070-TC; 87075-TC; 87081; 87086; 87186-TC; 87230-TC; 88304; 93005; 96360; 99285; J0696; J0878; J0885; J1644; J1815; J1956; J2250; J2405; J2543; J2765; J3370; J3480; J7030; J7042; J7050; J7060; J7120; P9021; Q9964

== ENCOUNTER 2016-10-09 11:14 | Inpatient (IN) | payer MEDICAID ==
[~2016-10-09] VITALS: Ht 167.6 cm; Wt 49.4 kg
[2016-10-09 11:14] VITALS: BP 124/56; PULSE 82; RESP 13; TEMP 97; O2SAT 96
[~2016-10-09 11:14] MED LIST: ASA81 GT; ASCO500T20 GT; CAT.1 GT; DOCU-144 GT; FER300L GT; GLIP-195 GT; HYDR-1189 GT; INSU100V9 SUBCUT; LACTIN GT; METO-442 GT; MULT GT; NOR10 GT; SIMV20TA2 GT; SSREG SUBCUT
[2016-10-09] MEDS ORDERED: POTA20TA83 GT (11:31)
[2016-10-09] MEDS ORDERED: ACET325T53 GT (11:31)
[2016-10-09] MEDS ORDERED: OMEP20CA10 GT (11:31)
[2016-10-09] MEDS ORDERED: ZIN220 GT (11:31)
[2016-10-09] MEDS ORDERED: ONDA4TAB5 PO (11:31)
[2016-10-09] MEDS ORDERED: INSU100I20 SQ (11:31)
[2016-10-09] MEDS ORDERED: ONDANSETRON HCL 4 MG/2 ML VIAL IVP ONE (12:00)
[2016-10-09] MEDS ORDERED: NACL 0.9% 1,000 ML IV ONE (12:00)
[2016-10-09 12:31] LABS: BILIRUBIN,URINE NEGATIVE (NEGATIVE); BLOOD, URINE 2+ (NEGATIVE); CLARITY/URINE CLEAR (CLEAR); COLOR,URINE YELLOW (YELLOW); GLUCOSE,URINE 3+ (NEGATIVE); KETONES,URINE NEGATIVE (NEGATIVE); LEUKOCYTE ESTERASE ,URINE TRACE (NEGATIVE); NITRITE, URINE NEGATIVE (NEGATIVE); PROTEIN URINE 2+ (NEGATIVE); UROBILINOGEN,URINE 0.2 (0.2-1.0)
[2016-10-09 12:47] LABS: BACTERIA,URINE FEW /HPF (None Seen); MUCUS,URINE None Seen /LPF (None Seen)
[2016-10-09 12:54] LABS: HEMATOCRIT 35.3 % (36-48); HEMOGLOBIN 11.4 g/dL (12.0-16.0); MEAN CORPUSCULAR HEMOGLOBIN 27 pg (27-31); MEAN CORPUSCULAR HGB CONC 32 % (32-36); MEAN CORPUSCULAR VOLUME 84 fL (79.0-98.0); PLATELET COUNT (AUTO) 459 K/uL (130-430); RED BLOOD CELL COUNT(AUTO) 4.19 MIL/uL (4.2-6.2); RED CELL DISTRIBUTION WIDTH 17.4 % (9.0-15.0); WHITE BLOOD COUNT (AUTO) 22.4 K/uL (4.8-10.8)
[2016-10-09 13:02] LABS: TOTAL BILIRUBIN 0.2 mg/dL (0.0-1.0); TOTAL PROTEIN, SERUM 8.6 g/dL (6.4-8.3)
[2016-10-09 13:04] LABS: INR 0.9 (0.8-1.2); PROTHROMBIN TIME 9.7 SECS (9.5-12.5)
[2016-10-09 13:15] LABS: CALCIUM 9.4 mg/dL (8.4-11.0); POTASSIUM 4.2 mmol/L (3.5-5.1)
[2016-10-09 13:17] LABS: ALBUMIN 2.9 g/dL (3.4-4.8)
[2016-10-09 13:18] LABS: BAND % (MANUAL) 2 % (0-6); BASOPHILS % (MANUAL) 0 % (0-2); EOSINOPHILS % (MANUAL) 0 % (0-7); LYMPHOCYTES % (MANUAL) 8 % (20-46); MONOCYTES % (MANUAL) 4 % (0-11)
[2016-10-09 13:20] LABS: CREATININE 1.4 mg/dL (0.55-1.30)
[2016-10-09] MEDS ORDERED: PIPERACILLIN/TAZOBACTAM 2.25 GM in NS 50 ML IV ONE (13:45)
[2016-10-09] MEDS ORDERED: PIPERACILLIN/TAZOBACTAM 2.25 GM VIAL IV ONE (13:52)
[2016-10-09 14:40] VITALS: BP 123/57; PULSE 79; RESP 18; TEMP 97.9; O2SAT 98
[2016-10-09] MEDS ORDERED: FLU VACC QS 2016-17(36MOS+)/PF 0.5 ML/SYR SYRINGE I.M. PRN (15:00)
[2016-10-09] MEDS ORDERED: DEXTROSE 50% JECT 50 ML DISP.SYRIN IVP PRN (15:15)
[2016-10-09] MEDS ORDERED: MORPHINE 2 MG/ML INJ. SYRINGE IVP PRN (15:15)
[2016-10-09] MEDS ORDERED: MAGNESIUM SULFATE 50 ML IV PRN (15:15)
[2016-10-09] MEDS ORDERED: LORazepam 2 MG/ML VIAL IVP PRN (15:15)
[2016-10-09] MEDS ORDERED: ONDANSETRON HCL 4 MG/2 ML VIAL IVP PRN (15:15)
[2016-10-09] MEDS ORDERED: POTASSIUM CHLORIDE 20 MEQ/PKT PACKET GT PRN (15:15)
[2016-10-09] MEDS ORDERED: ACETAMINOPHEN 650 MG/20.3 ML UDC GT PRN ×2 (15:15)
[2016-10-09] MEDS ORDERED: HYDROcodone/ACETAMIN 5-325 MG TAB (NORCO/ VICODIN) GT PRN (15:15)
[2016-10-09] MEDS ORDERED: DOCUSATE SODIUM 100 MG/10 ML UDC PO PRN (16:00)
[2016-10-09] MEDS ORDERED: DOCUSATE SODIUM 100 MG/10 ML UDC GT PRN (16:00)
[2016-10-09] MEDS ORDERED: LEVOFLOXACIN 500 MG/D5W 100 ML IV ONE (16:00)
[2016-10-09 16:33] VITALS: BP 125/72; PULSE 70; RESP 17; TEMP 98; O2SAT 94
[2016-10-09] MEDS: D5/0.45 NS 1,000 ML IV SCH (18:30)
[2016-10-09] MEDS: INSULIN ASPART 100 UNITS/ML, 10 ML VIAL (NovoLOG) SUBCUT PRN ×2 (18:50→21:15)
[2016-10-09 20:00] VITALS: BP 93/53; PULSE 84; RESP 18; TEMP 97.6; O2SAT 99
[2016-10-09] MEDS ORDERED: ZOLPIDEM TARTRATE 5 MG TABLET GT PRN (21:00)
[2016-10-09] MEDS: METOPROLOL TARTRATE 50 MG TABLET GT SCH (21:00)
[2016-10-09] MEDS: DOCUSATE SODIUM 100 MG/10 ML UDC GT SCH (21:11)
[2016-10-09] MEDS: SIMVASTATIN 20 MG TABLET GT SCH (21:12)
[2016-10-10 00:35] VITALS: BP 102/47; PULSE 81; RESP 17; TEMP 98.6; O2SAT 92
[2016-10-10 04:36] VITALS: BP 111/50; PULSE 76; RESP 18; TEMP 98.4; O2SAT 93
[2016-10-10] MEDS: INSULIN ASPART 100 UNITS/ML, 10 ML VIAL (NovoLOG) SUBCUT PRN ×2 (06:22→18:46)
[2016-10-10] MEDS: D5/0.45 NS 1,000 ML IV SCH ×2 (06:22→16:15)
[2016-10-10 07:32] LABS: BASOPHILS # (AUTO) 0.1 K/uL (0.0-0.2); BASOPHILS % (AUTO) 0.4 % (0.0-2.0); EOSINOPHILS # (AUTO) 0.2 K/uL (0.0-0.4); EOSINOPHILS % (AUTO) 1.4 % (0.0-4.0); HEMATOCRIT 28.6 % (36-48); HEMOGLOBIN 9.4 g/dL (12.0-16.0); LYMPHOCYTES # (AUTO) 1.8 K/uL (1.0-5.5); LYMPHOCYTES % (AUTO) 10.5 % (20.5-51.5); MEAN CORPUSCULAR HEMOGLOBIN 28 pg (27-31); MEAN CORPUSCULAR HGB CONC 33 % (32-36); MEAN CORPUSCULAR VOLUME 84 fL (79.0-98.0); MONOCYTES # (AUTO) 0.6 K/uL (0.0-1.0); MONOCYTES % (AUTO) 3.7 % (1.7-9.3); NEUTROPHILS # (AUTO) 14.1 K/uL (1.8-7.7); PLATELET COUNT (AUTO) 372 K/uL (130-430); RED CELL DISTRIBUTION WIDTH 17.7 % (9.0-15.0); WHITE BLOOD COUNT (AUTO) 16.8 K/uL (4.8-10.8)
[2016-10-10 07:44] LABS: CALCIUM 8.4 mg/dL (8.4-11.0); CREATININE 1.3 mg/dL (0.55-1.30); POTASSIUM 3.7 mmol/L (3.5-5.1)
[2016-10-10 08:00] VITALS: BP 120/60; PULSE 76; RESP 18; TEMP 98; O2SAT 98
[2016-10-10 08:14] LABS: INR 0.9 (0.8-1.2)
[2016-10-10] MEDS: ASCORBIC ACID 500 MG TABLET GT SCH (09:00)
[2016-10-10] MEDS: METOPROLOL TARTRATE 50 MG TABLET GT SCH ×2 (09:00→22:34)
[2016-10-10] MEDS: DOCUSATE SODIUM 100 MG/10 ML UDC GT SCH ×2 (09:00→22:33)
[2016-10-10] MEDS: amLODIPine BESYLATE 10 MG TABLET GT SCH (09:00)
[2016-10-10] MEDS: POTASSIUM CHLORIDE 20 MEQ/PKT PACKET GT SCH (09:00)
[2016-10-10 12:19] VITALS: BP 183/85; PULSE 99; RESP 17; TEMP 97.2; O2SAT 98
[2016-10-10] MEDS ORDERED: MEPERIDINE HCL/PF 50 MG/ML AMP ONE (15:03)
[2016-10-10] MEDS: MEPERIDINE HCL/PF 50 MG/ML AMP ONE ×2 (15:43→15:45)
[2016-10-10] MEDS: MIDAZOLAM HCL 5 MG/5 ML VIAL ONE ×2 (15:43→15:45)
[2016-10-10] MEDS: PANTOPRAZOLE SODIUM 40 MG/VIAL (PROTONIX) IVP SCH (18:40)
[2016-10-10 19:30] VITALS: BP 173/79; PULSE 84; RESP 20; TEMP 97.6; O2SAT 98
[2016-10-10 20:00] VITALS: BP 173/78; PULSE 84; RESP 20; TEMP 97.6; O2SAT 98
[2016-10-10] MEDS: SIMVASTATIN 20 MG TABLET GT SCH (22:33)
[2016-10-11] VITALS (7 sets, daily range): BP systolic 113–160; BP diastolic 62–95; PULSE 56–79; RESP 16–18; TEMP 96.3–98.7; O2SAT 95–99; Ht 167.6 cm; Wt 49.4 kg
[2016-10-11] MEDS: D5/0.45 NS 1,000 ML IV SCH (05:36)
[2016-10-11] MEDS: INSULIN ASPART 100 UNITS/ML, 10 ML VIAL (NovoLOG) SUBCUT PRN ×4 (06:20→21:14)
[2016-10-11 08:21] LABS: BASOPHILS # (AUTO) 0.1 K/uL (0.0-0.2); BASOPHILS % (AUTO) 0.5 % (0.0-2.0); EOSINOPHILS # (AUTO) 0.5 K/uL (0.0-0.4); EOSINOPHILS % (AUTO) 4.2 % (0.0-4.0); HEMATOCRIT 29.7 % (36-48); HEMOGLOBIN 9.7 g/dL (12.0-16.0); LYMPHOCYTES # (AUTO) 1.4 K/uL (1.0-5.5); LYMPHOCYTES % (AUTO) 11.7 % (20.5-51.5); MEAN CORPUSCULAR HEMOGLOBIN 27 pg (27-31); MEAN CORPUSCULAR HGB CONC 33 % (32-36); MEAN CORPUSCULAR VOLUME 84 fL (79.0-98.0); MONOCYTES # (AUTO) 0.5 K/uL (0.0-1.0); MONOCYTES % (AUTO) 3.8 % (1.7-9.3); NEUTROPHILS # (AUTO) 9.4 K/uL (1.8-7.7); NEUTROPHILS % (AUTO) 79.8 % (40.0-70.0); PLATELET COUNT (AUTO) 378 K/uL (130-430); RED BLOOD CELL COUNT(AUTO) 3.55 MIL/uL (4.2-6.2); RED CELL DISTRIBUTION WIDTH 17.2 % (9.0-15.0); WHITE BLOOD COUNT (AUTO) 11.9 K/uL (4.8-10.8)
[2016-10-11 08:29] LABS: CALCIUM 8.6 mg/dL (8.4-11.0); CREATININE 0.99 mg/dL (0.55-1.30); POTASSIUM 3.5 mmol/L (3.5-5.1)
[2016-10-11] MEDS ORDERED: METOCLOPRAMIDE HCL 10 MG/2 ML VIAL IVP ONE (09:30)
[2016-10-11] MEDS: DOCUSATE SODIUM 100 MG/10 ML UDC GT SCH ×2 (09:38→21:15)
[2016-10-11] MEDS: PANTOPRAZOLE SODIUM 40 MG/VIAL (PROTONIX) IVP SCH (09:38)
[2016-10-11] MEDS: POTASSIUM CHLORIDE 20 MEQ/PKT PACKET GT SCH (09:39)
[2016-10-11] MEDS: amLODIPine BESYLATE 10 MG TABLET GT SCH (09:39)
[2016-10-11] MEDS: ASCORBIC ACID 500 MG TABLET GT SCH (09:39)
[2016-10-11] MEDS: METOPROLOL TARTRATE 50 MG TABLET GT SCH ×2 (09:40→21:18)
[2016-10-11] MEDS: BALSAM PERU/CASTOR OIL 60 GM OINT...G. TP SCH (15:07)
[2016-10-11] MEDS: METOCLOPRAMIDE HCL 10 MG/2 ML VIAL IVP SCH ×2 (15:07→21:18)
[2016-10-11] MEDS ORDERED: LEVOFLOXACIN 250 MG/D5W 50 ML IV SCH (21:00)
[2016-10-11] MEDS: SIMVASTATIN 20 MG TABLET GT SCH (21:15)
[2016-10-12] VITALS (7 sets, daily range): BP systolic 95–179; BP diastolic 30–90; PULSE 69–84; RESP 16–18; TEMP 96–99; O2SAT 97–100
[2016-10-12] MEDS: METOCLOPRAMIDE HCL 10 MG/2 ML VIAL IVP SCH ×3 (05:43→23:55)
[2016-10-12] MEDS: D5/0.45 NS 1,000 ML IV SCH ×2 (05:43→05:45)
[2016-10-12] MEDS: INSULIN ASPART 100 UNITS/ML, 10 ML VIAL (NovoLOG) SUBCUT PRN ×4 (06:23→22:34)
[2016-10-12 07:52] LABS: BASOPHILS % (AUTO) 0.3 % (0.0-2.0); EOSINOPHILS # (AUTO) 0.3 K/uL (0.0-0.4); EOSINOPHILS % (AUTO) 2.4 % (0.0-4.0); HEMATOCRIT 28.5 % (36-48); HEMOGLOBIN 9.4 g/dL (12.0-16.0); LYMPHOCYTES % (AUTO) 8.4 % (20.5-51.5); MEAN CORPUSCULAR HEMOGLOBIN 28 pg (27-31); MEAN CORPUSCULAR HGB CONC 33 % (32-36); MEAN CORPUSCULAR VOLUME 84 fL (79.0-98.0); MONOCYTES # (AUTO) 0.5 K/uL (0.0-1.0); MONOCYTES % (AUTO) 4.1 % (1.7-9.3); NEUTROPHILS # (AUTO) 10.4 K/uL (1.8-7.7); NEUTROPHILS % (AUTO) 84.8 % (40.0-70.0); PLATELET COUNT (AUTO) 346 K/uL (130-430); RED CELL DISTRIBUTION WIDTH 17.1 % (9.0-15.0); WHITE BLOOD COUNT (AUTO) 12.2 K/uL (4.8-10.8)
[2016-10-12 08:15] LABS: CALCIUM 8.3 mg/dL (8.4-11.0); CREATININE 0.92 mg/dL (0.55-1.30)
[2016-10-12] MEDS: PANTOPRAZOLE SODIUM 40 MG/VIAL (PROTONIX) IVP SCH (09:26)
[2016-10-12] MEDS: DOCUSATE SODIUM 100 MG/10 ML UDC GT SCH ×2 (09:26→22:14)
[2016-10-12] MEDS: POTASSIUM CHLORIDE 20 MEQ/PKT PACKET GT SCH (09:26)
[2016-10-12] MEDS: METOPROLOL TARTRATE 50 MG TABLET GT SCH ×2 (09:27→22:19)
[2016-10-12] MEDS: amLODIPine BESYLATE 10 MG TABLET GT SCH (09:27)
[2016-10-12] MEDS: ASCORBIC ACID 500 MG TABLET GT SCH (09:27)
[2016-10-12] MEDS: BALSAM PERU/CASTOR OIL 60 GM OINT...G. TP SCH (12:15)
[2016-10-12] MEDS: AMIKACIN SULFATE 350 MG in D5W 100 ML IV SCH ×2 (12:51→23:55)
[2016-10-12] MEDS: SIMVASTATIN 20 MG TABLET GT SCH (22:05)
[2016-10-13] VITALS (7 sets, daily range): BP systolic 126–145; BP diastolic 54–79; PULSE 69–82; RESP 16–21; TEMP 97.6–98.2; O2SAT 96–98
[2016-10-13] MEDS: D5/0.45 NS 1,000 ML IV SCH ×2 (02:26→09:35)
[2016-10-13] MEDS: METOCLOPRAMIDE HCL 10 MG/2 ML VIAL IVP SCH ×2 (05:37→15:20)
[2016-10-13] MEDS: INSULIN ASPART 100 UNITS/ML, 10 ML VIAL (NovoLOG) SUBCUT PRN ×3 (06:10→17:42)
[2016-10-13 07:27] LABS: BASOPHILS % (AUTO) 0.4 % (0.0-2.0); EOSINOPHILS # (AUTO) 0.3 K/uL (0.0-0.4); EOSINOPHILS % (AUTO) 2.8 % (0.0-4.0); HEMATOCRIT 27.4 % (36-48); HEMOGLOBIN 9.1 g/dL (12.0-16.0); LYMPHOCYTES # (AUTO) 1.7 K/uL (1.0-5.5); LYMPHOCYTES % (AUTO) 15.4 % (20.5-51.5); MEAN CORPUSCULAR HEMOGLOBIN 28 pg (27-31); MEAN CORPUSCULAR HGB CONC 33 % (32-36); MEAN CORPUSCULAR VOLUME 85 fL (79.0-98.0); MONOCYTES # (AUTO) 0.6 K/uL (0.0-1.0); MONOCYTES % (AUTO) 5.3 % (1.7-9.3); NEUTROPHILS # (AUTO) 8.7 K/uL (1.8-7.7); NEUTROPHILS % (AUTO) 76.1 % (40.0-70.0); PLATELET COUNT (AUTO) 374 K/uL (130-430); RED BLOOD CELL COUNT(AUTO) 3.24 MIL/uL (4.2-6.2); RED CELL DISTRIBUTION WIDTH 17.3 % (9.0-15.0); WHITE BLOOD COUNT (AUTO) 11.3 K/uL (4.8-10.8)
[2016-10-13 08:16] LABS: CALCIUM 8.2 mg/dL (8.4-11.0); CREATININE 1.02 mg/dL (0.55-1.30); POTASSIUM 4.1 mmol/L (3.5-5.1)
[2016-10-13] MEDS: POTASSIUM CHLORIDE 20 MEQ/PKT PACKET GT SCH (09:18)
[2016-10-13] MEDS: PANTOPRAZOLE SODIUM 40 MG/VIAL (PROTONIX) IVP SCH (09:18)
[2016-10-13] MEDS: ASCORBIC ACID 500 MG TABLET GT SCH (09:20)
[2016-10-13] MEDS: amLODIPine BESYLATE 10 MG TABLET GT SCH (09:20)
[2016-10-13] MEDS: DOCUSATE SODIUM 100 MG/10 ML UDC GT SCH (09:21)
[2016-10-13] MEDS: BALSAM PERU/CASTOR OIL 60 GM OINT...G. TP SCH (09:22)
[2016-10-13] MEDS: METOPROLOL TARTRATE 50 MG TABLET GT SCH (09:34)
[2016-10-13] MEDS: AMIKACIN SULFATE 350 MG in D5W 100 ML IV SCH (12:26)
== END 2016-10-13 20:30 | DRG 241 ==
LOC: SED 11:14 → SMU 14:09
PROVIDERS: ADMIT General Practice; ATTEND General Practice
PROC: 0DB68ZX Excision of Stomach, Via Natural or Artificial Opening Endoscopic, Diagnostic (ICD-10-PCS; 2016-10-10)
PROC: CF141ZZ Planar Nuclear Medicine Imaging of Gallbladder using Technetium 99m (Tc-99m) (ICD-10-PCS; 2016-10-10)
PROC: 0DB58ZX Excision of Esophagus, Via Natural or Artificial Opening Endoscopic, Diagnostic (ICD-10-PCS; principal; 2016-10-10 13:00)
DX: K25.4 Chronic or unspecified gastric ulcer with hemorrhage (principal); N17.0 Acute kidney failure with tubular necrosis; E43 Unspecified severe protein-calorie malnutrition; K22.11 Ulcer of esophagus with bleeding; E11.21 Type 2 diabetes mellitus with diabetic nephropathy; L89.159 Pressure ulcer of sacral region, unspecified stage; K31.84 Gastroparesis; E11.43 Type 2 diabetes mellitus with diabetic autonomic (poly)neuropathy; K92.0 Hematemesis; E11.22 Type 2 diabetes mellitus with diabetic chronic kidney disease; N39.0 Urinary tract infection, site not specified; I12.9 Hypertensive chronic kidney disease with stage 1 through stage 4 chronic kidney disease, or unspecified chronic kidney disease; K44.9 Diaphragmatic hernia without obstruction or gangrene; R13.10 Dysphagia, unspecified; N18.9 Chronic kidney disease, unspecified; E11.65 Type 2 diabetes mellitus with hyperglycemia; Z16.24 Resistance to multiple antibiotics; B96.20 Unspecified Escherichia coli [E. coli] as the cause of diseases classified elsewhere; B96.1 Klebsiella pneumoniae [K. pneumoniae] as the cause of diseases classified elsewhere; Z79.82 Long term (current) use of aspirin; Z89.612 Acquired absence of left leg above knee; Z86.19 Personal history of other infectious and parasitic diseases; Z93.1 Gastrostomy status; Z89.511 Acquired absence of right leg below knee; Z79.899 Other long term (current) drug therapy; Z86.73 Personal history of transient ischemic attack (TIA), and cerebral infarction without residual deficits; Z68.1 Body mass index [BMI] 19.9 or less, adult
CPT/HCPCS: 36415; 43239; 71010; 78226; 80048; 80053; 81000-TC; 82962; 83605; 83690-TC; 83735-TC; 85007; 85025; 85027; 85610-TC; 85730-TC; 87040-TC; 87070-TC; 87081; 87086; 87186-TC; 88305; 88312; 88313; 92610-GN; 96374; 99285; A9537; C9113; J0278; J1815; J1956; J2175; J2250; J2405; J2543; J2765; J7030; J7060

== ENCOUNTER 2017-01-13 12:57 | Emergency (ER) | payer MEDICAID ==
[2016-10-11 14:24] VITALS: Ht 121.9 cm; Wt 62.6 kg
[~2017-01-13] VITALS: Ht 121.9 cm; Wt 62.6 kg
[~2017-01-13 12:57] MED LIST changes: +ACET325T53 GT; +INSU100I20 SQ; +OMEP20CA10 GT; +ONDA4TAB5 PO; +POTA20TA83 GT; +ZIN220 GT
[2017-01-13 13:00] VITALS: BP 137/57; PULSE 69; RESP 18; TEMP 98.4; O2SAT 97
--- NOTE | 2017-01-13 13:00 | NUR ---
Pt BIB BLS from [facility], placed to [facility]. Pt here for G-Tube replacement. Arrives with F/C in place to keep stoma patent.
--- NOTE | 2017-01-13 13:15 | NUR ---
Dr. Starkey at bedside to assess pt.
[2017-01-13] MEDS ORDERED: GASTROGRAFIN 120 ML ONE (13:20)
--- NOTE | 2017-01-13 13:20 | NUR ---
G-Tube placed per Dr. Starkey.
--- NOTE | 2017-01-13 13:25 | NUR ---
G-Tube placement confirmed per x-ray.
[2017-01-13 14:30] VITALS: BP 134/88; PULSE 79; RESP 18; TEMP 97.6; O2SAT 98
--- NOTE | 2017-01-13 14:30 | NUR ---
Patient given written and verbal discharge instructions and verbalizes understanding. ER MD discussed with patient the results and treatment provided. Patient in stable condition. ID arm band removed. Patient educated on pain management and to follow up with PMD. Pain Scale 0/10. Opportunity for questions provided and answered.
== END 2017-01-13 14:30 ==
LOC: SED 12:57
DX: Z43.1 Encounter for attention to gastrostomy (principal); E11.22 Type 2 diabetes mellitus with diabetic chronic kidney disease; I12.9 Hypertensive chronic kidney disease with stage 1 through stage 4 chronic kidney disease, or unspecified chronic kidney disease; N18.9 Chronic kidney disease, unspecified; Z86.73 Personal history of transient ischemic attack (TIA), and cerebral infarction without residual deficits
CPT/HCPCS: 43760; 74240; 99284; Q9963

== ENCOUNTER 2017-03-16 16:42 | Inpatient (IN) | payer MEDICAID ==
[~2017-03-16] VITALS: Ht 129.5 cm; Wt 64.0 kg
[2017-03-16 16:42] VITALS: BP_SYST 132
[2017-03-16] MEDS ORDERED: ESOM20TA GT (17:15)
[2017-03-16 19:33] LABS: CALCIUM 9.4 mg/dL (8.4-11.0); CREATININE 1.98 mg/dL (0.55-1.30); POTASSIUM 4.4 mmol/L (3.5-5.1)
[2017-03-16 19:36] LABS: BASOPHILS # (AUTO) 0.1 K/uL (0.0-0.2); BASOPHILS % (AUTO) 0.6 % (0.0-2.0); EOSINOPHILS # (AUTO) 0.2 K/uL (0.0-0.4); HEMATOCRIT 34.5 % (36-48); LYMPHOCYTES # (AUTO) 1.7 K/uL (1.0-5.5); LYMPHOCYTES % (AUTO) 10.9 % (20.5-51.5); MEAN CORPUSCULAR HEMOGLOBIN 26 pg (27-31); MEAN CORPUSCULAR HGB CONC 32 % (32-36); MEAN CORPUSCULAR VOLUME 82 fL (79.0-98.0); MONOCYTES # (AUTO) 0.5 K/uL (0.0-1.0); MONOCYTES % (AUTO) 2.9 % (1.7-9.3); NEUTROPHILS # (AUTO) 13.1 K/uL (1.8-7.7); NEUTROPHILS % (AUTO) 84.6 % (40.0-70.0); RED BLOOD CELL COUNT(AUTO) 4.19 MIL/uL (4.2-6.2); RED CELL DISTRIBUTION WIDTH 16.4 % (9.0-15.0); WHITE BLOOD COUNT (AUTO) 15.6 K/uL (4.8-10.8)
[2017-03-16 19:38] LABS: PLATELET COUNT (AUTO) 266 K/uL (130-430)
[2017-03-16 19:41] LABS: TOTAL BILIRUBIN 0.3 mg/dL (0.0-1.0); TOTAL PROTEIN, SERUM 8.7 g/dL (6.4-8.3)
[2017-03-16] MEDS ORDERED: NACL 0.9% 1,000 ML IV ONE (20:00)
[2017-03-16] MEDS ORDERED: cefTRIAXone 2 GM VIAL ONE (20:04)
[2017-03-16] MEDS ORDERED: ONDANSETRON HCL 4 MG/2 ML VIAL IVP PRN (20:15)
[2017-03-16] MEDS ORDERED: DOCUSATE SODIUM 100 MG CAPSULE PO PRN (20:15)
[2017-03-16] MEDS ORDERED: POTASSIUM CHLORIDE 10 MEQ TAB.PRT.SR PO PRN (20:15)
[2017-03-16] MEDS ORDERED: ZOLPIDEM TARTRATE 5 MG TABLET PO PRN (20:15)
[2017-03-16] MEDS ORDERED: MORPHINE 2 MG/ML INJ. SYRINGE IVP PRN (20:15)
[2017-03-16] MEDS ORDERED: ACETAMINOPHEN 325 MG TABLET PO PRN (20:15)
[2017-03-16] MEDS ORDERED: DEXTROSE 50% JECT 50 ML DISP.SYRIN IVP PRN (20:15)
[2017-03-16] MEDS ORDERED: MAGNESIUM SULFATE 50 ML IV PRN (20:15)
[2017-03-16] MEDS ORDERED: LORazepam 2 MG/ML VIAL IVP PRN (20:15)
[2017-03-16 20:40] VITALS: BP_SYST 128
[2017-03-16 21:12] VITALS: BP_SYST 151
[2017-03-16] MEDS: HEPARIN SODIUM,PORCINE 5000 UNITS/ML VIAL SUBCUT SCH (22:00)
[2017-03-16] MEDS: INSULIN ASPART 100 UNITS/ML, 10 ML VIAL (NovoLOG) SUBCUT PRN (22:02)
[2017-03-16] MEDS: D5NS 1,000 ML IV SCH (22:06)
[2017-03-17] VITALS (7 sets, daily range): BP systolic 124–164
[2017-03-17 04:02] LABS: BILIRUBIN,URINE NEGATIVE (NEGATIVE); BLOOD, URINE 1+ (NEGATIVE); CLARITY/URINE CLOUDY (CLEAR); COLOR,URINE YELLOW (YELLOW); GLUCOSE,URINE NEGATIVE (NEGATIVE); KETONES,URINE NEGATIVE (NEGATIVE); LEUKOCYTE ESTERASE ,URINE 1+ (NEGATIVE); NITRITE, URINE NEGATIVE (NEGATIVE); PH,URINE 8.5 (5.0-8.0); PROTEIN URINE 2+ (NEGATIVE); UROBILINOGEN,URINE 0.2 (0.2-1.0)
[2017-03-17 04:11] LABS: BACTERIA,URINE MANY /HPF (None Seen); RBC,URINE 0-3 /HPF (0-3); TRIPLE PHOSPHATE CRYSTAL,UR 50-70 /HPF (None Seen)
[2017-03-17 04:12] LABS: MUCUS,URINE None Seen /LPF (None Seen); URINE AMORPHOUS PHOSPHATES 3+ /HPF (None Seen)
[2017-03-17] MEDS: INSULIN ASPART 100 UNITS/ML, 10 ML VIAL (NovoLOG) SUBCUT PRN ×4 (06:01→22:12)
[2017-03-17 07:43] LABS: CALCIUM 8.7 mg/dL (8.4-11.0); CREATININE 1.78 mg/dL (0.55-1.30); POTASSIUM 3.9 mmol/L (3.5-5.1)
[2017-03-17 07:44] LABS: BASOPHILS # (AUTO) 0.1 K/uL (0.0-0.2); BASOPHILS % (AUTO) 0.5 % (0.0-2.0); EOSINOPHILS # (AUTO) 0.1 K/uL (0.0-0.4); HEMOGLOBIN 10.6 g/dL (12.0-16.0)
[2017-03-17 07:57] LABS: HEMATOCRIT 33.7 % (36-48); MEAN CORPUSCULAR HEMOGLOBIN 27 pg (27-31); MEAN CORPUSCULAR HGB CONC 32 % (32-36); MEAN CORPUSCULAR VOLUME 84 fL (79.0-98.0); PLATELET COUNT (AUTO) 232 K/uL (130-430); RED BLOOD CELL COUNT(AUTO) 4.02 MIL/uL (4.2-6.2); RED CELL DISTRIBUTION WIDTH 16.6 % (9.0-15.0); WHITE BLOOD COUNT (AUTO) 12.4 K/uL (4.8-10.8)
[2017-03-17 07:58] LABS: EOSINOPHILS % (AUTO) 1.1 % (0.0-4.0); LYMPHOCYTES # (AUTO) 1.5 K/uL (1.0-5.5); LYMPHOCYTES % (AUTO) 11.8 % (20.5-51.5); MONOCYTES # (AUTO) 0.6 K/uL (0.0-1.0); MONOCYTES % (AUTO) 4.9 % (1.7-9.3); NEUTROPHILS # (AUTO) 10.1 K/uL (1.8-7.7); NEUTROPHILS % (AUTO) 81.7 % (40.0-70.0)
[2017-03-17] MEDS ORDERED: DIATR MEGLU/DIATRIZ SOD 30 ML SOLUTION PO ONE (09:10)
[2017-03-17] MEDS: HEPARIN SODIUM,PORCINE 5000 UNITS/ML VIAL SUBCUT SCH ×2 (09:44→22:12)
[2017-03-17] MEDS ORDERED: GASTROGRAFIN 120 ML ONE (12:46)
[2017-03-17] MEDS: D5NS 1,000 ML IV SCH ×2 (15:37→17:25)
[2017-03-17] MEDS: cefTRIAXone 1 GM in D5W 50 ML IV SCH (22:07)
[2017-03-18 03:41] VITALS: BP_SYST 150
[2017-03-18] MEDS: D5NS 1,000 ML IV SCH (06:55)
[2017-03-18] MEDS: INSULIN ASPART 100 UNITS/ML, 10 ML VIAL (NovoLOG) SUBCUT PRN ×3 (06:59→17:56)
[2017-03-18 08:00] VITALS: BP_SYST 169
[2017-03-18 08:53] LABS: BASOPHILS # (AUTO) 0.1 K/uL (0.0-0.2); EOSINOPHILS # (AUTO) 0.1 K/uL (0.0-0.4); EOSINOPHILS % (AUTO) 1.9 % (0.0-4.0); HEMATOCRIT 31.3 % (36-48); HEMOGLOBIN 10.1 g/dL (12.0-16.0); LYMPHOCYTES # (AUTO) 0.8 K/uL (1.0-5.5); LYMPHOCYTES % (AUTO) 10.7 % (20.5-51.5); MEAN CORPUSCULAR HEMOGLOBIN 27 pg (27-31); MEAN CORPUSCULAR HGB CONC 32 % (32-36); MEAN CORPUSCULAR VOLUME 83 fL (79.0-98.0); MONOCYTES # (AUTO) 0.3 K/uL (0.0-1.0); MONOCYTES % (AUTO) 4.5 % (1.7-9.3); NEUTROPHILS # (AUTO) 6.4 K/uL (1.8-7.7); NEUTROPHILS % (AUTO) 81.9 % (40.0-70.0); PLATELET COUNT (AUTO) 210 K/uL (130-430); RED BLOOD CELL COUNT(AUTO) 3.77 MIL/uL (4.2-6.2); RED CELL DISTRIBUTION WIDTH 16.3 % (9.0-15.0); WHITE BLOOD COUNT (AUTO) 7.7 K/uL (4.8-10.8)
[2017-03-18 09:01] LABS: CALCIUM 8.7 mg/dL (8.4-11.0); CREATININE 1.51 mg/dL (0.55-1.30); POTASSIUM 4.2 mmol/L (3.5-5.1)
[2017-03-18] MEDS ORDERED: hydrALAZINE HCL 20 MG/ML VIAL IVP PRN (09:45)
[2017-03-18] MEDS: HEPARIN SODIUM,PORCINE 5000 UNITS/ML VIAL SUBCUT SCH (10:30)
[2017-03-18 11:29] VITALS: BP_SYST 133
[2017-03-18 15:35] VITALS: BP_SYST 148
[2017-03-18] MEDS: D5/0.45 NS 1,000 ML IV SCH (17:14)
[2017-03-18 21:46] LABS: CALCIUM 8.8 mg/dL (8.4-11.0); CREATININE 1.54 mg/dL (0.55-1.30); POTASSIUM 3.9 mmol/L (3.5-5.1)
[2017-03-18] MEDS: LACTULOSE 20 GM/30 ML UDC GT SCH (23:49)
[2017-03-18] MEDS: FERROUS SULFATE 300 MG/5 ML UDC GT SCH (23:49)
[2017-03-18] MEDS: cefTRIAXone 1 GM in D5W 50 ML IV SCH (23:49)
[2017-03-18] MEDS: SIMVASTATIN 20 MG TABLET GT SCH (23:50)
[2017-03-19] MEDS: HEPARIN SODIUM,PORCINE 5000 UNITS/ML VIAL SUBCUT SCH ×2 (00:02→10:08)
[2017-03-19 03:43] VITALS: BP_SYST 159
[2017-03-19] MEDS: D5/0.45 NS 1,000 ML IV SCH ×2 (03:52→21:16)
[2017-03-19] MEDS: INSULIN ASPART 100 UNITS/ML, 10 ML VIAL (NovoLOG) SUBCUT PRN ×3 (06:56→18:10)
[2017-03-19 07:46] LABS: BASOPHILS # (AUTO) 0.1 K/uL (0.0-0.2); BASOPHILS % (AUTO) 0.9 % (0.0-2.0); EOSINOPHILS # (AUTO) 0.1 K/uL (0.0-0.4); EOSINOPHILS % (AUTO) 1.6 % (0.0-4.0); HEMATOCRIT 34.6 % (36-48); HEMOGLOBIN 11.2 g/dL (12.0-16.0); LYMPHOCYTES # (AUTO) 1.2 K/uL (1.0-5.5); MEAN CORPUSCULAR HEMOGLOBIN 27 pg (27-31); MEAN CORPUSCULAR HGB CONC 32 % (32-36); MEAN CORPUSCULAR VOLUME 84 fL (79.0-98.0); MONOCYTES # (AUTO) 0.4 K/uL (0.0-1.0); MONOCYTES % (AUTO) 5.8 % (1.7-9.3); NEUTROPHILS # (AUTO) 5.5 K/uL (1.8-7.7); NEUTROPHILS % (AUTO) 74.7 % (40.0-70.0); PLATELET COUNT (AUTO) 236 K/uL (130-430); RED BLOOD CELL COUNT(AUTO) 4.14 MIL/uL (4.2-6.2); RED CELL DISTRIBUTION WIDTH 16.4 % (9.0-15.0); WHITE BLOOD COUNT (AUTO) 7.3 K/uL (4.8-10.8)
[2017-03-19 08:07] LABS: CALCIUM 9.1 mg/dL (8.4-11.0); CREATININE 1.55 mg/dL (0.55-1.30); POTASSIUM 4.1 mmol/L (3.5-5.1)
[2017-03-19] MEDS: ASCORBIC ACID 500 MG TABLET GT SCH (10:01)
[2017-03-19] MEDS: MULTIVITAMINS TAB 1 TABLET GT SCH (10:01)
[2017-03-19] MEDS: FERROUS SULFATE 300 MG/5 ML UDC GT SCH (10:02)
[2017-03-19] MEDS: amLODIPine BESYLATE 10 MG TABLET GT SCH (10:03)
[2017-03-19] MEDS: LACTULOSE 20 GM/30 ML UDC GT SCH ×2 (10:04→21:00)
[2017-03-19] MEDS: METOPROLOL TARTRATE 50 MG TABLET GT SCH ×2 (10:04)
[2017-03-19 11:36] VITALS: BP_SYST 122
[2017-03-19] MEDS: MEROPENEM 1 GM in NS 100 ML IV SCH (14:33)
[2017-03-19 15:41] VITALS: BP_SYST 127
[2017-03-19] MEDS ORDERED: BISACODYL 10 MG/SUPPOSITORY RC ONE (15:45)
[2017-03-19] MEDS ORDERED: MINERAL OIL 30 ML UDC GT ONE (15:45)
[2017-03-20] MEDS: FERROUS SULFATE 300 MG/5 ML UDC GT SCH ×3 (00:01→21:50)
[2017-03-20] MEDS: MEROPENEM 1 GM in NS 100 ML IV SCH ×4 (00:01→21:52)
[2017-03-20] MEDS: SIMVASTATIN 20 MG TABLET GT SCH ×2 (00:02→21:51)
[2017-03-20] MEDS: METOPROLOL TARTRATE 50 MG TABLET GT SCH ×3 (00:03→21:51)
[2017-03-20] MEDS: INSULIN ASPART 100 UNITS/ML, 10 ML VIAL (NovoLOG) SUBCUT PRN ×4 (00:07→21:54)
[2017-03-20] MEDS: HEPARIN SODIUM,PORCINE 5000 UNITS/ML VIAL SUBCUT SCH ×3 (00:07→21:55)
[2017-03-20 00:20] VITALS: BP_SYST 138
[2017-03-20 04:10] VITALS: BP_SYST 130
[2017-03-20 07:34] LABS: BASOPHILS # (AUTO) 0.1 K/uL (0.0-0.2); BASOPHILS % (AUTO) 0.9 % (0.0-2.0); EOSINOPHILS # (AUTO) 0.2 K/uL (0.0-0.4); EOSINOPHILS % (AUTO) 2.4 % (0.0-4.0); HEMATOCRIT 31.8 % (36-48); HEMOGLOBIN 10.3 g/dL (12.0-16.0); LYMPHOCYTES # (AUTO) 1.5 K/uL (1.0-5.5); LYMPHOCYTES % (AUTO) 14.6 % (20.5-51.5); MEAN CORPUSCULAR HEMOGLOBIN 27 pg (27-31); MEAN CORPUSCULAR HGB CONC 32 % (32-36); MEAN CORPUSCULAR VOLUME 84 fL (79.0-98.0); MONOCYTES # (AUTO) 0.5 K/uL (0.0-1.0); MONOCYTES % (AUTO) 4.6 % (1.7-9.3); NEUTROPHILS # (AUTO) 7.8 K/uL (1.8-7.7); NEUTROPHILS % (AUTO) 77.5 % (40.0-70.0); PLATELET COUNT (AUTO) 204 K/uL (130-430); RED BLOOD CELL COUNT(AUTO) 3.79 MIL/uL (4.2-6.2); RED CELL DISTRIBUTION WIDTH 16.1 % (9.0-15.0)
[2017-03-20 07:43] LABS: CALCIUM 8.8 mg/dL (8.4-11.0); CREATININE 1.67 mg/dL (0.55-1.30); PHOSPHORUS 3.6 mg/dL (2.7-4.5)
[2017-03-20 07:53] LABS: WHITE BLOOD COUNT (AUTO) 10.1 K/uL (4.8-10.8)
[2017-03-20] MEDS: POLYETHYLENE GLYCOL 3350, 17 GM/ POWD.PACK PO SCH (09:00)
[2017-03-20] MEDS: LACTULOSE 20 GM/30 ML UDC GT SCH ×2 (09:00→21:50)
[2017-03-20] MEDS: MULTIVITAMINS TAB 1 TABLET GT SCH (10:19)
[2017-03-20] MEDS: ASCORBIC ACID 500 MG TABLET GT SCH (10:20)
[2017-03-20] MEDS: amLODIPine BESYLATE 10 MG TABLET GT SCH (10:20)
[2017-03-20 12:37] VITALS: BP_SYST 107
[2017-03-20 16:20] VITALS: BP_SYST 121
[2017-03-20 20:00] VITALS: BP_SYST 122
[2017-03-21] VITALS: BP_SYST 132
[2017-03-21] MEDS: D5/0.45 NS 1,000 ML IV SCH (00:36)
[2017-03-21 04:37] VITALS: BP_SYST 131
[2017-03-21] MEDS: MEROPENEM 1 GM in NS 100 ML IV SCH ×2 (05:40→14:16)
[2017-03-21] MEDS: INSULIN ASPART 100 UNITS/ML, 10 ML VIAL (NovoLOG) SUBCUT PRN ×3 (06:04→19:37)
[2017-03-21 06:39] LABS: BASOPHILS # (AUTO) 0.1 K/uL (0.0-0.2); BASOPHILS % (AUTO) 0.5 % (0.0-2.0); EOSINOPHILS # (AUTO) 0.2 K/uL (0.0-0.4); EOSINOPHILS % (AUTO) 1.5 % (0.0-4.0); HEMOGLOBIN 9.8 g/dL (12.0-16.0); LYMPHOCYTES # (AUTO) 0.8 K/uL (1.0-5.5); MEAN CORPUSCULAR HEMOGLOBIN 26 pg (27-31); MEAN CORPUSCULAR HGB CONC 31 % (32-36); MEAN CORPUSCULAR VOLUME 84 fL (79.0-98.0); MONOCYTES # (AUTO) 0.4 K/uL (0.0-1.0); MONOCYTES % (AUTO) 3.8 % (1.7-9.3); NEUTROPHILS % (AUTO) 87.2 % (40.0-70.0); PLATELET COUNT (AUTO) 196 K/uL (130-430); RED BLOOD CELL COUNT(AUTO) 3.71 MIL/uL (4.2-6.2); RED CELL DISTRIBUTION WIDTH 16.6 % (9.0-15.0); WHITE BLOOD COUNT (AUTO) 11.5 K/uL (4.8-10.8)
[2017-03-21 06:44] LABS: CALCIUM 8.3 mg/dL (8.4-11.0); CREATININE 1.62 mg/dL (0.55-1.30); PHOSPHORUS 3.3 mg/dL (2.7-4.5); POTASSIUM 3.6 mmol/L (3.5-5.1)
[2017-03-21] MEDS: POLYETHYLENE GLYCOL 3350, 17 GM/ POWD.PACK PO SCH (09:00)
[2017-03-21] MEDS: FERROUS SULFATE 300 MG/5 ML UDC GT SCH (09:05)
[2017-03-21] MEDS: METOPROLOL TARTRATE 50 MG TABLET GT SCH (09:05)
[2017-03-21] MEDS: MULTIVITAMINS TAB 1 TABLET GT SCH (09:05)
[2017-03-21] MEDS: amLODIPine BESYLATE 10 MG TABLET GT SCH (09:06)
[2017-03-21] MEDS: ASCORBIC ACID 500 MG TABLET GT SCH (09:06)
[2017-03-21] MEDS: LACTULOSE 20 GM/30 ML UDC GT SCH (09:13)
[2017-03-21] MEDS: HEPARIN SODIUM,PORCINE 5000 UNITS/ML VIAL SUBCUT SCH (09:18)
[2017-03-21 11:26] VITALS: BP_SYST 134
[2017-03-21 15:33] VITALS: BP_SYST 94
[2017-03-21] MEDS ORDERED: MENTHOL/ZINC OXIDE 113 GM OINT. TP PRN (17:00)
[2017-03-21] MEDS ORDERED: MENTHOL/ZINC OXIDE 113 GM OINT. TP SCH (17:00)
[2017-03-21 17:16] VITALS: BP_SYST 101
== END 2017-03-21 20:08 | DRG 252 ==
LOC: SED 16:42 → SMU 19:18
PROVIDERS: ADMIT General Practice; ATTEND General Practice
PROC: 0D20XUZ Change Feeding Device in Upper Intestinal Tract, External Approach (ICD-10-PCS; principal; 2017-03-17)
DX: K94.23 Gastrostomy malfunction (principal); N17.0 Acute kidney failure with tubular necrosis; A41.9 Sepsis, unspecified organism; E43 Unspecified severe protein-calorie malnutrition; L89.159 Pressure ulcer of sacral region, unspecified stage; E87.0 Hyperosmolality and hypernatremia; E11.22 Type 2 diabetes mellitus with diabetic chronic kidney disease; N39.0 Urinary tract infection, site not specified; I12.9 Hypertensive chronic kidney disease with stage 1 through stage 4 chronic kidney disease, or unspecified chronic kidney disease; N18.9 Chronic kidney disease, unspecified; R13.10 Dysphagia, unspecified; E11.65 Type 2 diabetes mellitus with hyperglycemia; E78.00 Pure hypercholesterolemia, unspecified; K56.41 Fecal impaction; Z16.12 Extended spectrum beta lactamase (ESBL) resistance; Y83.3 Surgical operation with formation of external stoma as the cause of abnormal reaction of the patient, or of later complication, without mention of misadventure at the time of the procedure; M62.81 Muscle weakness (generalized); K80.20 Calculus of gallbladder without cholecystitis without obstruction; Z89.612 Acquired absence of left leg above knee; Z89.511 Acquired absence of right leg below knee; Z79.899 Other long term (current) drug therapy; Z86.73 Personal history of transient ischemic attack (TIA), and cerebral infarction without residual deficits; Z68.38 Body mass index [BMI] 38.0-38.9, adult; Z79.84 Long term (current) use of oral hypoglycemic drugs; Z93.1 Gastrostomy status
CPT/HCPCS: 36415; 71010; 74000-TC; 74240-TC; 80048; 80053; 81000-TC; 82962; 83605; 83735-TC; 84100-TC; 85025; 87040-TC; 87081; 87086; 87186-TC; 93005; 96365; 99285; A6209; J0360; J0696; J1644; J1815; J2185; J2405; J7030; J7042; J7060; Q9963; Q9964

== ENCOUNTER 2017-08-25 22:21 | Inpatient (IN) | payer MEDICAID ==
[~2017-08-25] VITALS: Ht 129.5 cm; Wt 76.7 kg
[2017-08-25 22:21] VITALS: BP_SYST 101
[~2017-08-25 22:21] MED LIST changes: -ASA81 GT; -CAT.1 GT; +ESOM20TA GT; -GLIP-195 GT; -HYDR-1189 GT; -INSU100V9 SUBCUT; -LACTIN GT; -OMEP20CA10 GT; -ONDA4TAB5 PO
[2017-08-25] MEDS ORDERED: NS 500 ML IV SCH (22:49)
[2017-08-25 23:45] LABS: BASOPHILS % (AUTO) 0.1 % (0.0-2.0); EOSINOPHILS % (AUTO) 0.1 % (0.0-4.0); LYMPHOCYTES # (AUTO) 0.6 K/uL (1.0-5.5); LYMPHOCYTES % (AUTO) 4.1 % (20.5-51.5); MEAN CORPUSCULAR HEMOGLOBIN 26 pg (27-31); MEAN CORPUSCULAR HGB CONC 31 % (32-36); MEAN CORPUSCULAR VOLUME 84 fL (79.0-98.0); MONOCYTES # (AUTO) 0.2 K/uL (0.0-1.0); MONOCYTES % (AUTO) 1.4 % (1.7-9.3); NEUTROPHILS # (AUTO) 14.9 K/uL (1.8-7.7); NEUTROPHILS % (AUTO) 94.3 % (40.0-70.0); PLATELET COUNT (AUTO) 365 K/uL (130-430); RED BLOOD CELL COUNT(AUTO) 2.32 MIL/uL (4.2-6.2); RED CELL DISTRIBUTION WIDTH 16.5 % (9.0-15.0); WHITE BLOOD COUNT (AUTO) 15.7 K/uL (4.8-10.8)
[2017-08-26 00:03] LABS: HEMATOCRIT 19.5 % (36-48)
[2017-08-26 00:05] LABS: CALCIUM 8.1 mg/dL (8.4-11.0); CREATININE 5.11 mg/dL (0.55-1.30); POTASSIUM 4.4 mmol/L (3.5-5.1)
[2017-08-26 00:07] LABS: ALBUMIN 1.3 g/dL (3.4-4.8); TOTAL BILIRUBIN 0.3 mg/dL (0.0-1.0)
[2017-08-26 00:11] LABS: PROTHROMBIN TIME 9.8 SECS (9.5-12.5)
[2017-08-26] MEDS ORDERED: NACL 0.9% 1,000 ML IV ONE (00:45)
[2017-08-26] MEDS ORDERED: LEVOFLOXACIN 500 MG/D5W 100 ML IV ONE (02:30)
[2017-08-26 03:03] LABS: BILIRUBIN,URINE NEGATIVE (NEGATIVE); BLOOD, URINE 3+ (NEGATIVE); CLARITY/URINE CLEAR (CLEAR); COLOR,URINE YELLOW (YELLOW); GLUCOSE,URINE NEGATIVE (NEGATIVE); KETONES,URINE NEGATIVE (NEGATIVE); LEUKOCYTE ESTERASE ,URINE 2+ (NEGATIVE); NITRITE, URINE NEGATIVE (NEGATIVE); PROTEIN URINE 2+ (NEGATIVE); UROBILINOGEN,URINE 0.2 (0.2-1.0)
[2017-08-26 03:15] LABS: BACTERIA,URINE MODERATE /HPF (None Seen); RBC,URINE 20-50 /HPF (0-3)
[2017-08-26] MEDS ORDERED: NUT.250L18 GT (03:23)
[2017-08-26] MEDS ORDERED: VIT1TABL44 GT (03:23)
[2017-08-26] MEDS ORDERED: METO-290 GT (03:23)
[2017-08-26] MEDS ORDERED: ONDA4TAB5 GT (03:23)
[2017-08-26] MEDS ORDERED: LACTIN GT (03:23)
[2017-08-26] MEDS ORDERED: FAMO20TA8 GT (03:25)
[2017-08-26] MEDS ORDERED: FIBER GT SCH (04:15)
[2017-08-26] MEDS ORDERED: [UNRECOGNIZED DRUG - OTHER] GT SCH (04:15)
[2017-08-26] MEDS ORDERED: MUPIROCIN 2% TOPICAL OINTMENT 22 GM NS PRN (07:00)
[2017-08-26] MEDS ORDERED: DEXTROSE 50% JECT 50 ML DISP.SYRIN IVP PRN (07:00)
[2017-08-26] MEDS ORDERED: LORazepam 2 MG/ML VIAL IVP PRN (07:00)
[2017-08-26] MEDS ORDERED: ONDANSETRON HCL 4 MG/2 ML VIAL IVP PRN (07:00)
[2017-08-26] MEDS ORDERED: POTASSIUM CHLORIDE 20 MEQ TAB.PRT.SR PO PRN (07:00)
[2017-08-26] MEDS ORDERED: ACETAMINOPHEN 325 MG TABLET PO PRN (07:00)
[2017-08-26] MEDS ORDERED: DOCUSATE SODIUM 100 MG CAPSULE PO PRN (07:00)
[2017-08-26] MEDS ORDERED: ACETAMINOPHEN 325 MG TABLET GT PRN (07:00)
[2017-08-26] MEDS ORDERED: MORPHINE 2 MG/ML INJ. SYRINGE IVP PRN ×2 (07:00)
[2017-08-26] MEDS ORDERED: ZOLPIDEM TARTRATE 5 MG TABLET PO PRN (07:00)
[2017-08-26] MEDS ORDERED: MAGNESIUM SULFATE 50 ML IV PRN (07:00)
[2017-08-26 09:30] VITALS: BP_SYST 98
[2017-08-26 10:05] VITALS: BP_SYST 98
[2017-08-26 13:07] VITALS: BP_SYST 85
[2017-08-26] MEDS ORDERED: METOPROLOL TARTRATE 50 MG TABLET GT ONE (13:15)
[2017-08-26] MEDS ORDERED: PANTOPRAZOLE SODIUM 40 MG/VIAL (PROTONIX) IVP ONE (13:15)
[2017-08-26] MEDS ORDERED: amLODIPine BESYLATE 10 MG TABLET GT ONE (13:15)
[2017-08-26] MEDS: NACL 0.9% 1,000 ML IV SCH ×2 (15:07→16:17)
[2017-08-26] MEDS: INSULIN ASPART 100 UNITS/ML, 10 ML VIAL (NovoLOG) SUBCUT PRN ×3 (15:17→20:51)
[2017-08-26 16:14] VITALS: BP_SYST 105
[2017-08-26] MEDS: LEVOFLOXACIN 250 MG/D5W 50 ML IV SCH (16:17)
[2017-08-26 20:56] VITALS: BP_SYST 104
[2017-08-26] MEDS: DOCUSATE SODIUM 100 MG CAPSULE PO SCH (20:56)
[2017-08-26] MEDS: METOPROLOL TARTRATE 50 MG TABLET GT SCH (20:56)
[2017-08-27 01:08] VITALS: BP_SYST 104
[2017-08-27] MEDS: D5/0.45 NS 1,000 ML IV SCH ×2 (01:24→15:33)
[2017-08-27 07:58] LABS: CALCIUM 7.8 mg/dL (8.4-11.0); CREATININE 3.6 mg/dL (0.55-1.30); POTASSIUM 3.5 mmol/L (3.5-5.1)
[2017-08-27 08:03] LABS: BASOPHILS % (AUTO) 0.5 % (0.0-2.0); EOSINOPHILS # (AUTO) 0.1 K/uL (0.0-0.4); EOSINOPHILS % (AUTO) 1.4 % (0.0-4.0); HEMATOCRIT 24.2 % (36-48); HEMOGLOBIN 7.7 g/dL (12.0-16.0); LYMPHOCYTES # (AUTO) 0.5 K/uL (1.0-5.5); LYMPHOCYTES % (AUTO) 5.4 % (20.5-51.5); MEAN CORPUSCULAR HEMOGLOBIN 27 pg (27-31); MEAN CORPUSCULAR HGB CONC 32 % (32-36); MEAN CORPUSCULAR VOLUME 85 fL (79.0-98.0); MONOCYTES % (AUTO) 0.3 % (1.7-9.3); NEUTROPHILS # (AUTO) 7.9 K/uL (1.8-7.7); NEUTROPHILS % (AUTO) 92.4 % (40.0-70.0); PLATELET COUNT (AUTO) 303 K/uL (130-430); RED BLOOD CELL COUNT(AUTO) 2.85 MIL/uL (4.2-6.2); RED CELL DISTRIBUTION WIDTH 16.3 % (9.0-15.0); WHITE BLOOD COUNT (AUTO) 8.5 K/uL (4.8-10.8)
[2017-08-27 08:15] VITALS: BP_SYST 144
[2017-08-27 08:37] LABS: ALBUMIN 1.2 g/dL (3.4-4.8); TOTAL BILIRUBIN 0.2 mg/dL (0.0-1.0)
[2017-08-27] MEDS: amLODIPine BESYLATE 10 MG TABLET GT SCH (09:00)
[2017-08-27] MEDS: ASCORBIC ACID 500 MG TABLET GT SCH (09:00)
[2017-08-27] MEDS: DOCUSATE SODIUM 100 MG CAPSULE PO SCH ×2 (09:00→21:17)
[2017-08-27] MEDS: METOPROLOL TARTRATE 50 MG TABLET GT SCH ×2 (09:00→21:19)
[2017-08-27] MEDS: PANTOPRAZOLE SODIUM 40 MG/VIAL (PROTONIX) IVP SCH (09:19)
[2017-08-27] MEDS: MEPERIDINE HCL/PF 100 MG/ML AMP ONE ×2 (11:15→12:05)
[2017-08-27] MEDS: MIDAZOLAM HCL 5 MG/5 ML VIAL ONE ×2 (11:15→12:07)
[2017-08-27] MEDS: INSULIN ASPART 100 UNITS/ML, 10 ML VIAL (NovoLOG) SUBCUT PRN ×3 (12:44→21:39)
[2017-08-27 12:51] VITALS: BP_SYST 98
[2017-08-27] MEDS ORDERED: [UNRECOGNIZED DRUG - OTHER] GT SCH (13:00)
[2017-08-27] MEDS: LEVOFLOXACIN 250 MG/D5W 50 ML IV SCH (13:41)
[2017-08-27 14:21] LABS: RETICULOCYTE COUNT 1.2 % (0.5-1.5)
[2017-08-27 16:22] LABS: TOTAL IRON BIND. CAPACITY 95 ug/dL (250-450)
[2017-08-27] MEDS ORDERED: BISACODYL 5 MG TABLET.DR (DULCOLAX) GT SCH (17:00)
[2017-08-27 17:07] VITALS: BP_SYST 90
[2017-08-27] MEDS ORDERED: GOLYTELY / COLYTE SOLUTION 4 LITERS GT ONE (18:00)
[2017-08-27] MEDS ORDERED: GOLYTELY / COLYTE SOLUTION 4 LITERS GT SCH (18:00)
[2017-08-27 19:50] VITALS: BP_SYST 109
[2017-08-28 02:57] VITALS: BP_SYST 102
[2017-08-28] MEDS: D5/0.45 NS 1,000 ML IV SCH (04:28)
[2017-08-28] MEDS: INSULIN ASPART 100 UNITS/ML, 10 ML VIAL (NovoLOG) SUBCUT PRN ×3 (06:24→22:10)
[2017-08-28 08:30] VITALS: BP_SYST 123
[2017-08-28 08:38] LABS: CALCIUM 7.7 mg/dL (8.4-11.0); POTASSIUM 3.4 mmol/L (3.5-5.1)
[2017-08-28] MEDS: amLODIPine BESYLATE 10 MG TABLET GT SCH (09:00)
[2017-08-28] MEDS: METOPROLOL TARTRATE 50 MG TABLET GT SCH ×2 (09:00→21:50)
[2017-08-28] MEDS: DOCUSATE SODIUM 100 MG CAPSULE PO SCH ×2 (09:00→21:51)
[2017-08-28] MEDS: ASCORBIC ACID 500 MG TABLET GT SCH (09:00)
[2017-08-28 09:43] LABS: BASOPHILS % (AUTO) 0.1 % (0.0-2.0); EOSINOPHILS # (AUTO) 0.2 K/uL (0.0-0.4); EOSINOPHILS % (AUTO) 2.1 % (0.0-4.0); HEMOGLOBIN 7.4 g/dL (12.0-16.0); LYMPHOCYTES # (AUTO) 1.7 K/uL (1.0-5.5); LYMPHOCYTES % (AUTO) 14.8 % (20.5-51.5); MEAN CORPUSCULAR HEMOGLOBIN 28 pg (27-31); MEAN CORPUSCULAR HGB CONC 34 % (32-36); MEAN CORPUSCULAR VOLUME 84 fL (79.0-98.0); MONOCYTES # (AUTO) 0.3 K/uL (0.0-1.0); MONOCYTES % (AUTO) 2.7 % (1.7-9.3); NEUTROPHILS # (AUTO) 9.5 K/uL (1.8-7.7); NEUTROPHILS % (AUTO) 80.3 % (40.0-70.0); PLATELET COUNT (AUTO) 475 K/uL (130-430); RED BLOOD CELL COUNT(AUTO) 2.61 MIL/uL (4.2-6.2); RED CELL DISTRIBUTION WIDTH 16.9 % (9.0-15.0); WHITE BLOOD COUNT (AUTO) 11.7 K/uL (4.8-10.8)
[2017-08-28] MEDS: PANTOPRAZOLE SODIUM 40 MG/VIAL (PROTONIX) IVP SCH (09:46)
[2017-08-28 12:29] VITALS: BP_SYST 107
[2017-08-28] MEDS ORDERED: MIDAZOLAM HCL 5 MG/5 ML VIAL ONE (13:05)
[2017-08-28] MEDS ORDERED: SIMETHICONE 40 MG/0.6 ML ML ONE (13:05)
[2017-08-28] MEDS ORDERED: MEPERIDINE HCL/PF 100 MG/ML AMP ONE (13:05)
[2017-08-28] MEDS: LEVOFLOXACIN 250 MG/D5W 50 ML IV SCH (13:22)
[2017-08-28 16:20] VITALS: BP_SYST 91
[2017-08-28 20:00] VITALS: BP_SYST 108
[2017-08-28] MEDS: OSELTAMIVIR PHOSPHATE 6 MG/1 ML, 60 ML SUSP PO SCH ×2 (21:00→22:18)
[2017-08-29] VITALS: BP_SYST 115
[2017-08-29 02:06] LABS: FOLATE (FOLIC ACID) >20.0 ng/mL (>3.0)
[2017-08-29] MEDS: INSULIN ASPART 100 UNITS/ML, 10 ML VIAL (NovoLOG) SUBCUT PRN ×4 (06:47→22:29)
[2017-08-29 07:36] LABS: BASOPHILS % (AUTO) 0.1 % (0.0-2.0); EOSINOPHILS % (AUTO) 0.4 % (0.0-4.0); HEMATOCRIT 23.5 % (36-48); HEMOGLOBIN 7.7 g/dL (12.0-16.0); LYMPHOCYTES # (AUTO) 0.6 K/uL (1.0-5.5); LYMPHOCYTES % (AUTO) 5.9 % (20.5-51.5); MEAN CORPUSCULAR HEMOGLOBIN 28 pg (27-31); MEAN CORPUSCULAR HGB CONC 33 % (32-36); MEAN CORPUSCULAR VOLUME 85 fL (79.0-98.0); MONOCYTES # (AUTO) 0.3 K/uL (0.0-1.0); MONOCYTES % (AUTO) 2.6 % (1.7-9.3); NEUTROPHILS # (AUTO) 9.1 K/uL (1.8-7.7); PLATELET COUNT (AUTO) 376 K/uL (130-430); RED BLOOD CELL COUNT(AUTO) 2.78 MIL/uL (4.2-6.2); RED CELL DISTRIBUTION WIDTH 16.3 % (9.0-15.0)
[2017-08-29 08:00] VITALS: BP_SYST 102
[2017-08-29 08:20] LABS: CALCIUM 8.1 mg/dL (8.4-11.0); CREATININE 2.44 mg/dL (0.55-1.30); POTASSIUM 3.2 mmol/L (3.5-5.1)
[2017-08-29] MEDS: PANTOPRAZOLE SODIUM 40 MG/VIAL (PROTONIX) IVP SCH (08:47)
[2017-08-29] MEDS: ASCORBIC ACID 500 MG TABLET GT SCH (08:47)
[2017-08-29] MEDS: DOCUSATE SODIUM 100 MG CAPSULE PO SCH ×2 (08:47→22:12)
[2017-08-29] MEDS: amLODIPine BESYLATE 10 MG TABLET GT SCH (08:49)
[2017-08-29] MEDS: METOPROLOL TARTRATE 50 MG TABLET GT SCH ×2 (08:49→22:13)
[2017-08-29] MEDS: OSELTAMIVIR PHOSPHATE 6 MG/1 ML, 60 ML SUSP PO SCH (08:54)
[2017-08-29] MEDS: BALSAM PERU/CASTOR OIL 60 GM OINT...G. TP SCH (11:10)
[2017-08-29 11:28] VITALS: BP_SYST 100
[2017-08-29] MEDS: ERTAPENEM SODIUM 1 GM in NS 50 ML IV SCH (14:27)
[2017-08-29 16:37] VITALS: BP_SYST 92
[2017-08-29 18:12] LABS: FERRITIN 2518 ng/mL (15-150)
[2017-08-29 18:13] LABS: HAPTOGLOBIN 697 mg/dL (34-200)
[2017-08-30 00:46] VITALS: BP_SYST 93
[2017-08-30] MEDS: INSULIN ASPART 100 UNITS/ML, 10 ML VIAL (NovoLOG) SUBCUT PRN ×3 (06:43→18:19)
[2017-08-30 07:08] LABS: BASOPHILS % (AUTO) 0.1 % (0.0-2.0); EOSINOPHILS % (AUTO) 0.3 % (0.0-4.0); HEMATOCRIT 22.6 % (36-48); HEMOGLOBIN 7.4 g/dL (12.0-16.0); LYMPHOCYTES # (AUTO) 0.9 K/uL (1.0-5.5); LYMPHOCYTES % (AUTO) 7.7 % (20.5-51.5); MEAN CORPUSCULAR HEMOGLOBIN 28 pg (27-31); MEAN CORPUSCULAR HGB CONC 33 % (32-36); MEAN CORPUSCULAR VOLUME 86 fL (79.0-98.0); MONOCYTES # (AUTO) 0.5 K/uL (0.0-1.0); MONOCYTES % (AUTO) 4.5 % (1.7-9.3); NEUTROPHILS # (AUTO) 9.8 K/uL (1.8-7.7); NEUTROPHILS % (AUTO) 87.4 % (40.0-70.0); PLATELET COUNT (AUTO) 410 K/uL (130-430); RED BLOOD CELL COUNT(AUTO) 2.63 MIL/uL (4.2-6.2); RED CELL DISTRIBUTION WIDTH 16.7 % (9.0-15.0); WHITE BLOOD COUNT (AUTO) 11.2 K/uL (4.8-10.8)
[2017-08-30 07:17] LABS: CALCIUM 8.1 mg/dL (8.4-11.0); CREATININE 2.78 mg/dL (0.55-1.30)
[2017-08-30] MEDS: METOPROLOL TARTRATE 50 MG TABLET GT SCH ×2 (09:00→21:00)
[2017-08-30] MEDS: amLODIPine BESYLATE 10 MG TABLET GT SCH (09:00)
[2017-08-30 09:45] VITALS: BP_SYST 96
[2017-08-30] MEDS: OSELTAMIVIR PHOSPHATE 6 MG/1 ML, 60 ML SUSP PO SCH ×2 (10:17→21:00)
[2017-08-30] MEDS: DOCUSATE SODIUM 100 MG CAPSULE PO SCH ×2 (10:18→21:00)
[2017-08-30] MEDS: ASCORBIC ACID 500 MG TABLET GT SCH (10:19)
[2017-08-30] MEDS: BALSAM PERU/CASTOR OIL 60 GM OINT...G. TP SCH (10:20)
[2017-08-30] MEDS: PANTOPRAZOLE SODIUM 40 MG/VIAL (PROTONIX) IVP SCH (10:20)
[2017-08-30 12:39] VITALS: BP_SYST 95
[2017-08-30] MEDS: ERTAPENEM SODIUM 1 GM in NS 50 ML IV SCH (15:25)
[2017-08-30] MEDS: D5W 1,000 ML IV SCH ×2 (15:25→22:58)
[2017-08-30 16:41] VITALS: BP_SYST 106
[2017-08-31] VITALS: BP_SYST 111
[2017-08-31] MEDS: INSULIN ASPART 100 UNITS/ML, 10 ML VIAL (NovoLOG) SUBCUT PRN ×2 (00:39→13:32)
[2017-08-31 04:00] VITALS: BP_SYST 109
[2017-08-31 07:51] LABS: BASOPHILS % (AUTO) 0.1 % (0.0-2.0); EOSINOPHILS # (AUTO) 0.2 K/uL (0.0-0.4); EOSINOPHILS % (AUTO) 1.7 % (0.0-4.0); LYMPHOCYTES % (AUTO) 11.2 % (20.5-51.5); MEAN CORPUSCULAR HEMOGLOBIN 28 pg (27-31); MEAN CORPUSCULAR HGB CONC 33 % (32-36); MEAN CORPUSCULAR VOLUME 85 fL (79.0-98.0); MONOCYTES # (AUTO) 0.4 K/uL (0.0-1.0); MONOCYTES % (AUTO) 4.7 % (1.7-9.3); NEUTROPHILS # (AUTO) 7.5 K/uL (1.8-7.7); NEUTROPHILS % (AUTO) 82.3 % (40.0-70.0); PLATELET COUNT (AUTO) 452 K/uL (130-430); RED BLOOD CELL COUNT(AUTO) 2.54 MIL/uL (4.2-6.2); RED CELL DISTRIBUTION WIDTH 16.8 % (9.0-15.0); WHITE BLOOD COUNT (AUTO) 9.1 K/uL (4.8-10.8)
[2017-08-31 08:00] LABS: CALCIUM 8.3 mg/dL (8.4-11.0); CREATININE 3.03 mg/dL (0.55-1.30); POTASSIUM 3.7 mmol/L (3.5-5.1)
[2017-08-31 08:29] LABS: HEMATOCRIT 21.6 % (36-48)
[2017-08-31] MEDS: D5W 1,000 ML IV SCH (08:58)
[2017-08-31] MEDS: amLODIPine BESYLATE 10 MG TABLET GT SCH (09:00)
[2017-08-31] MEDS: METOPROLOL TARTRATE 50 MG TABLET GT SCH ×2 (09:00→21:00)
[2017-08-31] MEDS: ASCORBIC ACID 500 MG TABLET GT SCH ×3 (09:00→11:17)
[2017-08-31] MEDS: DOCUSATE SODIUM 100 MG CAPSULE PO SCH ×3 (09:00→21:00)
[2017-08-31] MEDS: OSELTAMIVIR PHOSPHATE 6 MG/1 ML, 60 ML SUSP PO SCH ×3 (09:00→21:00)
[2017-08-31] MEDS ORDERED: ACETAMINOPHEN 325 MG TABLET PO ONE (10:30)
[2017-08-31] MEDS ORDERED: LORATADINE 10 MG TABLET PO ONE (10:30)
[2017-08-31] MEDS ORDERED: DIPHENHYDRAMINE HCL 12.5 MG/5 ML UDC NG ONE (10:30)
[2017-08-31] MEDS: PANTOPRAZOLE SODIUM 40 MG/VIAL (PROTONIX) IVP SCH (11:14)
[2017-08-31] MEDS: BALSAM PERU/CASTOR OIL 60 GM OINT...G. TP SCH (11:18)
[2017-08-31 12:34] VITALS: BP_SYST 100
[2017-08-31] MEDS: ERTAPENEM SODIUM 1 GM in NS 50 ML IV SCH (13:32)
[2017-08-31 16:18] VITALS: BP_SYST 121
[2017-08-31] MEDS ORDERED: MEPERIDINE HCL/PF 50 MG/ML AMP ONE (17:54)
[2017-08-31] MEDS ORDERED: MORPHINE 2 MG/ML INJ. SYRINGE IVP PRN (18:15)
[2017-08-31] MEDS ORDERED: MEPERIDINE HCL/PF 25 MG/ML DISP.SYRIN IVP PRN (19:45)
[2017-08-31] MEDS ORDERED: ONDANSETRON HCL 4 MG/2 ML VIAL IVP ONE (19:45)
[2017-08-31] MEDS ORDERED: NALOXONE HCL 0.4 MG/ML AMP (NARCAN) IVP ONE (19:45)
[2017-08-31] MEDS ORDERED: MIDAZOLAM HCL 5 MG/5 ML VIAL IVP PRN (19:45)
[2017-08-31] MEDS ORDERED: fentaNYL CITRATE/PF 100 MCG/2 ML AMP IVP PRN (19:45)
[2017-08-31] MEDS ORDERED: hydrALAZINE HCL 20 MG/ML VIAL IVP PRN (19:45)
[2017-08-31] MEDS ORDERED: HYDROmorphone 1 MG INJ. 1 MG/ML AMPUL IVP PRN (19:45)
[2017-08-31 20:38] VITALS: BP_SYST 119
[2017-09-01 00:37] VITALS: BP_SYST 115
[2017-09-01] MEDS: INSULIN ASPART 100 UNITS/ML, 10 ML VIAL (NovoLOG) SUBCUT PRN ×5 (00:43→20:33)
[2017-09-01 04:00] VITALS: BP_SYST 120
[2017-09-01 07:30] LABS: BASOPHILS % (AUTO) 0.2 % (0.0-2.0); EOSINOPHILS # (AUTO) 0.1 K/uL (0.0-0.4); EOSINOPHILS % (AUTO) 1.3 % (0.0-4.0); HEMATOCRIT 23.7 % (36-48); HEMOGLOBIN 7.6 g/dL (12.0-16.0); LYMPHOCYTES # (AUTO) 0.6 K/uL (1.0-5.5); LYMPHOCYTES % (AUTO) 5.6 % (20.5-51.5); MEAN CORPUSCULAR HEMOGLOBIN 27 pg (27-31); MEAN CORPUSCULAR HGB CONC 32 % (32-36); MEAN CORPUSCULAR VOLUME 85 fL (79.0-98.0); MONOCYTES # (AUTO) 0.3 K/uL (0.0-1.0); MONOCYTES % (AUTO) 2.9 % (1.7-9.3); NEUTROPHILS # (AUTO) 8.9 K/uL (1.8-7.7); PLATELET COUNT (AUTO) 472 K/uL (130-430); RED BLOOD CELL COUNT(AUTO) 2.78 MIL/uL (4.2-6.2); RED CELL DISTRIBUTION WIDTH 15.6 % (9.0-15.0); WHITE BLOOD COUNT (AUTO) 9.9 K/uL (4.8-10.8)
[2017-09-01 07:48] LABS: CREATININE 2.42 mg/dL (0.55-1.30); POTASSIUM 3.6 mmol/L (3.5-5.1)
[2017-09-01 07:59] LABS: ALBUMIN 1.1 g/dL (3.4-4.8); TOTAL BILIRUBIN 0.2 mg/dL (0.0-1.0)
[2017-09-01] MEDS: PANTOPRAZOLE SODIUM 40 MG/VIAL (PROTONIX) IVP SCH (10:14)
[2017-09-01] MEDS: DOCUSATE SODIUM 100 MG CAPSULE PO SCH ×2 (10:15→20:26)
[2017-09-01] MEDS: OSELTAMIVIR PHOSPHATE 6 MG/1 ML, 60 ML SUSP PO SCH ×2 (10:16→20:26)
[2017-09-01] MEDS: BALSAM PERU/CASTOR OIL 60 GM OINT...G. TP SCH (10:16)
[2017-09-01] MEDS: amLODIPine BESYLATE 10 MG TABLET GT SCH (10:25)
[2017-09-01] MEDS: METOPROLOL TARTRATE 50 MG TABLET GT SCH ×2 (10:29→20:26)
[2017-09-01 12:46] VITALS: BP_SYST 116
[2017-09-01] MEDS: ERTAPENEM SODIUM 1 GM in NS 50 ML IV SCH (13:38)
[2017-09-01 16:12] VITALS: BP_SYST 130
[2017-09-01 20:00] VITALS: BP_SYST 129
[2017-09-02 01:28] VITALS: BP_SYST 105
[2017-09-02] MEDS: D5W 1,000 ML IV SCH (06:18)
[2017-09-02] MEDS: INSULIN ASPART 100 UNITS/ML, 10 ML VIAL (NovoLOG) SUBCUT PRN ×4 (06:27→22:24)
[2017-09-02 08:00] VITALS: BP_SYST 144
[2017-09-02 08:01] LABS: CALCIUM 7.9 mg/dL (8.4-11.0); CREATININE 1.92 mg/dL (0.55-1.30); POTASSIUM 3.8 mmol/L (3.5-5.1)
[2017-09-02 08:11] LABS: TOTAL BILIRUBIN 0.2 mg/dL (0.0-1.0)
[2017-09-02 08:13] LABS: BASOPHILS # (AUTO) 0.1 K/uL (0.0-0.2); BASOPHILS % (AUTO) 0.4 % (0.0-2.0); EOSINOPHILS # (AUTO) 0.2 K/uL (0.0-0.4); EOSINOPHILS % (AUTO) 1.5 % (0.0-4.0); HEMATOCRIT 23.1 % (36-48); HEMOGLOBIN 7.5 g/dL (12.0-16.0); LYMPHOCYTES # (AUTO) 0.6 K/uL (1.0-5.5); LYMPHOCYTES % (AUTO) 5.1 % (20.5-51.5); MEAN CORPUSCULAR HEMOGLOBIN 28 pg (27-31); MEAN CORPUSCULAR HGB CONC 33 % (32-36); MEAN CORPUSCULAR VOLUME 85 fL (79.0-98.0); MONOCYTES # (AUTO) 0.3 K/uL (0.0-1.0); MONOCYTES % (AUTO) 2.5 % (1.7-9.3); NEUTROPHILS # (AUTO) 11.5 K/uL (1.8-7.7); PLATELET COUNT (AUTO) 499 K/uL (130-430); RED BLOOD CELL COUNT(AUTO) 2.72 MIL/uL (4.2-6.2); RED CELL DISTRIBUTION WIDTH 15.6 % (9.0-15.0); WHITE BLOOD COUNT (AUTO) 12.7 K/uL (4.8-10.8)
[2017-09-02] MEDS: DOCUSATE SODIUM 100 MG CAPSULE PO SCH ×2 (08:23→22:19)
[2017-09-02] MEDS: ASCORBIC ACID 500 MG TABLET GT SCH (08:24)
[2017-09-02] MEDS: amLODIPine BESYLATE 10 MG TABLET GT SCH (08:24)
[2017-09-02] MEDS: PANTOPRAZOLE SODIUM 40 MG/VIAL (PROTONIX) IVP SCH (08:25)
[2017-09-02] MEDS: METOPROLOL TARTRATE 50 MG TABLET GT SCH ×2 (08:25→21:00)
[2017-09-02] MEDS: OSELTAMIVIR PHOSPHATE 6 MG/1 ML, 60 ML SUSP PO SCH (08:26)
[2017-09-02] MEDS: BALSAM PERU/CASTOR OIL 60 GM OINT...G. TP SCH (09:00)
[2017-09-02 12:25] VITALS: BP_SYST 126
[2017-09-02 12:41] LABS: NEUTROPHILS % (AUTO) 90.5 % (40.0-70.0)
[2017-09-02] MEDS: ERTAPENEM SODIUM 1 GM in NS 50 ML IV SCH (14:00)
[2017-09-02] MEDS ORDERED: LORazepam 2 MG/ML VIAL IVP PRN (22:15)
[2017-09-02] MEDS ORDERED: MORPHINE 2 MG/ML INJ. SYRINGE IVP PRN (22:15)
[2017-09-02] MEDS ORDERED: ZOLPIDEM TARTRATE 5 MG TABLET PO PRN (22:15)
[2017-09-03 01:33] VITALS: BP_SYST 136
[2017-09-03] MEDS: INSULIN ASPART 100 UNITS/ML, 10 ML VIAL (NovoLOG) SUBCUT PRN ×2 (06:10→22:19)
[2017-09-03 08:07] LABS: BASOPHILS % (AUTO) 0.3 % (0.0-2.0); EOSINOPHILS # (AUTO) 0.2 K/uL (0.0-0.4); EOSINOPHILS % (AUTO) 1.4 % (0.0-4.0); HEMOGLOBIN 7.7 g/dL (12.0-16.0); LYMPHOCYTES # (AUTO) 0.8 K/uL (1.0-5.5); LYMPHOCYTES % (AUTO) 5.4 % (20.5-51.5); MEAN CORPUSCULAR HEMOGLOBIN 27 pg (27-31); MEAN CORPUSCULAR HGB CONC 32 % (32-36); MEAN CORPUSCULAR VOLUME 85 fL (79.0-98.0); MONOCYTES # (AUTO) 0.3 K/uL (0.0-1.0); MONOCYTES % (AUTO) 1.9 % (1.7-9.3); NEUTROPHILS # (AUTO) 12.7 K/uL (1.8-7.7); PLATELET COUNT (AUTO) 538 K/uL (130-430); RED BLOOD CELL COUNT(AUTO) 2.83 MIL/uL (4.2-6.2); RED CELL DISTRIBUTION WIDTH 15.7 % (9.0-15.0)
[2017-09-03 08:22] LABS: CREATININE 1.89 mg/dL (0.55-1.30); POTASSIUM 4.2 mmol/L (3.5-5.1); TOTAL BILIRUBIN 0.2 mg/dL (0.0-1.0)
[2017-09-03] MEDS: amLODIPine BESYLATE 10 MG TABLET GT SCH (10:55)
[2017-09-03] MEDS: METOPROLOL TARTRATE 50 MG TABLET GT SCH ×2 (10:57→22:15)
[2017-09-03] MEDS: ASCORBIC ACID 500 MG TABLET GT SCH (10:57)
[2017-09-03] MEDS: PANTOPRAZOLE SODIUM 40 MG/VIAL (PROTONIX) IVP SCH (10:57)
[2017-09-03] MEDS: DOCUSATE SODIUM 100 MG CAPSULE PO SCH ×2 (10:58→22:15)
[2017-09-03 12:36] VITALS: BP_SYST 124
[2017-09-03] MEDS: ERTAPENEM SODIUM 1 GM in NS 50 ML IV SCH (16:09)
[2017-09-03 17:05] VITALS: BP_SYST 137
[2017-09-03 17:13] VITALS: BP_SYST 122
[2017-09-03 20:00] VITALS: BP_SYST 118
[2017-09-04 03:08] VITALS: BP_SYST 119
[2017-09-04 08:00] VITALS: BP_SYST 96
[2017-09-04] MEDS: amLODIPine BESYLATE 10 MG TABLET GT SCH (09:00)
[2017-09-04] MEDS: PANTOPRAZOLE SODIUM 40 MG/VIAL (PROTONIX) IVP SCH (10:10)
[2017-09-04] MEDS: DOCUSATE SODIUM 100 MG CAPSULE PO SCH ×2 (10:11→22:14)
[2017-09-04] MEDS: ASCORBIC ACID 500 MG TABLET GT SCH (10:11)
[2017-09-04 12:27] VITALS: BP_SYST 111
[2017-09-04] MEDS: BALSAM PERU/CASTOR OIL 60 GM OINT...G. TP SCH ×2 (13:40→18:00)
[2017-09-04] MEDS: INSULIN ASPART 100 UNITS/ML, 10 ML VIAL (NovoLOG) SUBCUT PRN ×2 (13:43→22:16)
[2017-09-04] MEDS: ERTAPENEM SODIUM 1 GM in NS 50 ML IV SCH (13:44)
[2017-09-04 16:39] VITALS: BP_SYST 118
[2017-09-04 20:00] VITALS: BP_SYST 99
[2017-09-04] MEDS: METOPROLOL TARTRATE 50 MG TABLET GT SCH (21:00)
[2017-09-05 00:45] VITALS: BP_SYST 110
[2017-09-05 12:28] VITALS: BP_SYST 136
[2017-09-05 16:09] VITALS: BP_SYST 121
[2017-09-05] MEDS: INSULIN ASPART 100 UNITS/ML, 10 ML VIAL (NovoLOG) SUBCUT PRN (18:41)
[2017-09-05] MEDS ORDERED: AMIKACIN SULFATE 400 MG in D5W 100 ML IV SCH (20:00)
[2017-09-05] MEDS: METOPROLOL TARTRATE 50 MG TABLET GT SCH (22:12)
[2017-09-06 01:06] VITALS: BP_SYST 121
[2017-09-06] MEDS: INSULIN ASPART 100 UNITS/ML, 10 ML VIAL (NovoLOG) SUBCUT PRN ×2 (06:24→11:58)
[2017-09-06 08:00] VITALS: BP_SYST 121
[2017-09-06] MEDS ORDERED: LORazepam 2 MG/ML VIAL IM PRN (09:00)
[2017-09-06] MEDS: DOCUSATE SODIUM 100 MG CAPSULE PO SCH ×2 (09:00→21:00)
[2017-09-06] MEDS: amLODIPine BESYLATE 10 MG TABLET GT SCH (09:00)
[2017-09-06] MEDS: BALSAM PERU/CASTOR OIL 60 GM OINT...G. TP SCH (09:00)
[2017-09-06] MEDS: METOPROLOL TARTRATE 50 MG TABLET GT SCH ×2 (10:16→21:36)
[2017-09-06] MEDS: MORPHINE SULFATE 10 MG/ML VIAL IVP PRN (10:19)
[2017-09-06 13:33] VITALS: BP_SYST 127
[2017-09-06 17:04] VITALS: BP_SYST 107
[2017-09-06 20:00] VITALS: BP_SYST 131
[2017-09-07 00:53] VITALS: BP_SYST 111
[2017-09-07] MEDS: amLODIPine BESYLATE 10 MG TABLET GT SCH (10:38)
[2017-09-07] MEDS: METOPROLOL TARTRATE 50 MG TABLET GT SCH ×2 (10:39→21:55)
[2017-09-07] MEDS: DOCUSATE SODIUM 100 MG CAPSULE PO SCH ×2 (10:39→21:55)
[2017-09-07] MEDS: BALSAM PERU/CASTOR OIL 60 GM OINT...G. TP SCH (10:40)
[2017-09-07 12:54] VITALS: BP_SYST 127
[2017-09-07 18:41] VITALS: BP_SYST 117
[2017-09-07 20:00] VITALS: BP_SYST 111
[2017-09-07] MEDS: MORPHINE SULFATE 10 MG/ML VIAL IVP PRN (21:56)
[2017-09-08 00:45] VITALS: BP_SYST 109
[2017-09-08 08:00] VITALS: BP_SYST 112
[2017-09-08] MEDS: BALSAM PERU/CASTOR OIL 60 GM OINT...G. TP SCH (10:03)
[2017-09-08] MEDS: DOCUSATE SODIUM 100 MG CAPSULE PO SCH ×2 (10:04→22:17)
[2017-09-08] MEDS: amLODIPine BESYLATE 10 MG TABLET GT SCH (10:04)
[2017-09-08] MEDS: METOPROLOL TARTRATE 50 MG TABLET GT SCH ×2 (10:04→22:18)
[2017-09-08 11:28] VITALS: BP_SYST 133
[2017-09-08 15:51] VITALS: BP_SYST 133
[2017-09-08] MEDS: INSULIN ASPART 100 UNITS/ML, 10 ML VIAL (NovoLOG) SUBCUT PRN ×2 (16:56→22:25)
[2017-09-08 20:43] VITALS: BP_SYST 134
[2017-09-09 00:40] VITALS: BP_SYST 120
[2017-09-09] MEDS: INSULIN ASPART 100 UNITS/ML, 10 ML VIAL (NovoLOG) SUBCUT PRN ×2 (05:53→12:39)
[2017-09-09 08:10] VITALS: BP_SYST 122
[2017-09-09] MEDS: METOPROLOL TARTRATE 50 MG TABLET GT SCH ×2 (10:43→20:45)
[2017-09-09] MEDS: amLODIPine BESYLATE 10 MG TABLET GT SCH (10:43)
[2017-09-09] MEDS: BALSAM PERU/CASTOR OIL 60 GM OINT...G. TP SCH (10:44)
[2017-09-09] MEDS: DOCUSATE SODIUM 100 MG CAPSULE PO SCH ×2 (10:44→20:45)
[2017-09-09 12:53] VITALS: BP_SYST 139
[2017-09-09 16:54] VITALS: BP_SYST 124
[2017-09-09 20:17] VITALS: BP_SYST 135
[2017-09-10 00:11] VITALS: BP_SYST 124
[2017-09-10 08:00] VITALS: BP_SYST 139
[2017-09-10] MEDS: BALSAM PERU/CASTOR OIL 60 GM OINT...G. TP SCH (09:26)
[2017-09-10] MEDS: amLODIPine BESYLATE 10 MG TABLET GT SCH (09:27)
[2017-09-10] MEDS: METOPROLOL TARTRATE 50 MG TABLET GT SCH ×2 (09:27→20:08)
[2017-09-10] MEDS: DOCUSATE SODIUM 100 MG CAPSULE PO SCH ×2 (09:27→20:08)
[2017-09-10 12:55] VITALS: BP_SYST 107
[2017-09-10 16:40] VITALS: BP_SYST 120
[2017-09-10 19:55] VITALS: BP_SYST 121
[2017-09-11 00:17] VITALS: BP_SYST 114
[2017-09-11] MEDS: BALSAM PERU/CASTOR OIL 60 GM OINT...G. TP SCH (09:00)
[2017-09-11] MEDS: amLODIPine BESYLATE 10 MG TABLET GT SCH (09:26)
[2017-09-11] MEDS: DOCUSATE SODIUM 100 MG CAPSULE PO SCH ×2 (09:26→21:35)
[2017-09-11] MEDS: METOPROLOL TARTRATE 50 MG TABLET GT SCH ×2 (09:26→21:36)
[2017-09-11 12:20] VITALS: BP_SYST 139
[2017-09-11 16:43] VITALS: BP_SYST 145; BP_SYST 170
[2017-09-11 19:15] VITALS: BP_SYST 151
[2017-09-12 00:36] VITALS: BP_SYST 101
[2017-09-12 04:05] VITALS: BP_SYST 141
[2017-09-12] MEDS: DOCUSATE SODIUM 100 MG CAPSULE PO SCH (09:15)
[2017-09-12] MEDS: amLODIPine BESYLATE 10 MG TABLET GT SCH (09:16)
[2017-09-12] MEDS: METOPROLOL TARTRATE 50 MG TABLET GT SCH (09:17)
[2017-09-12] MEDS: BALSAM PERU/CASTOR OIL 60 GM OINT...G. TP SCH (09:19)
[2017-09-12 13:24] VITALS: BP_SYST 110
[2017-09-12 16:43] VITALS: BP_SYST 107
== END 2017-09-12 16:10 | DRG 710 ==
LOC: SED 22:21 → STU 08-26 02:51 → SMU 08-29 14:08
PROVIDERS: ADMIT General Practice; ATTEND General Practice
PROC: 30233N1 Transfusion of Nonautologous Red Blood Cells into Peripheral Vein, Percutaneous Approach (ICD-10-PCS; 2017-08-26)
PROC: 0DB68ZX Excision of Stomach, Via Natural or Artificial Opening Endoscopic, Diagnostic (ICD-10-PCS; 2017-08-27)
PROC: 0DJD8ZZ Inspection of Lower Intestinal Tract, Via Natural or Artificial Opening Endoscopic (ICD-10-PCS; 2017-08-28)
PROC: 0D1M0Z4 Bypass Descending Colon to Cutaneous, Open Approach (ICD-10-PCS; principal; 2017-08-31 18:00)
PROC: 0QB10ZZ Excision of Sacrum, Open Approach (ICD-10-PCS; 2017-08-31 18:00)
DX: A41.9 Sepsis, unspecified organism (principal); N17.0 Acute kidney failure with tubular necrosis; E43 Unspecified severe protein-calorie malnutrition; G93.41 Metabolic encephalopathy; L89.154 Pressure ulcer of sacral region, stage 4; E11.22 Type 2 diabetes mellitus with diabetic chronic kidney disease; K22.10 Ulcer of esophagus without bleeding; Z68.42 Body mass index [BMI] 45.0-49.9, adult; E11.51 Type 2 diabetes mellitus with diabetic peripheral angiopathy without gangrene; N39.0 Urinary tract infection, site not specified; D64.9 Anemia, unspecified; B96.4 Proteus (mirabilis) (morganii) as the cause of diseases classified elsewhere; N18.3 Chronic kidney disease, stage 3 (moderate); Z16.12 Extended spectrum beta lactamase (ESBL) resistance; K29.70 Gastritis, unspecified, without bleeding; K64.8 Other hemorrhoids; J10.1 Influenza due to other identified influenza virus with other respiratory manifestations; E66.9 Obesity, unspecified; R32 Unspecified urinary incontinence; F17.200 Nicotine dependence, unspecified, uncomplicated; I12.9 Hypertensive chronic kidney disease with stage 1 through stage 4 chronic kidney disease, or unspecified chronic kidney disease; K44.9 Diaphragmatic hernia without obstruction or gangrene; R62.7 Adult failure to thrive; Z66 Do not resuscitate; Z51.5 Encounter for palliative care; Z90.710 Acquired absence of both cervix and uterus; Z86.73 Personal history of transient ischemic attack (TIA), and cerebral infarction without residual deficits; Z93.1 Gastrostomy status; Z89.612 Acquired absence of left leg above knee; Z89.511 Acquired absence of right leg below knee; Z79.899 Other long term (current) drug therapy; Z90.49 Acquired absence of other specified parts of digestive tract
CPT/HCPCS: 36415; 43239; 45378; 70450-TC; 71010; 76770; 80048; 80053; 81000-TC; 82272; 82607; 82728; 82746; 82962; 83010; 83540-TC; 83550-TC; 83605; 83735-TC; 83880; 84484; 85025; 85044-TC; 85610-TC; 85730-TC; 86710; 86886; 86900; 86901; 86920; 87040-TC; 87070-TC; 87081; 87086; 87186-TC; 88304; 88311; 93005; 96361; 96365; 99291; A5061; A6550; C9113; G9035; J0278; J1335; J1815; J1956; J2175; J2250; J2270; J7030; J7042; J7050; J7060; P9021